=== PATIENT | female | born 1995 | race Hispanic/Latino ===

== ENCOUNTER 2016-03-20 02:51 | Emergency (ER) | payer OTHER ==
[~2016-03-20 02:51] MED LIST: FERR325T3 PO; MOTR200T44 PO; PERCOCET PO
[2016-03-20] MEDS ORDERED: METOCLOPRAMIDE INJ 10MG/2ML VIAL (J2765) As Ordered ONE (03:36)
[2016-03-20 03:38] LABS: MEAN CORPUSCULAR HGB CONC 34.3 g/dl (32.0-36.5); MEAN CORPUSCULAR VOLUME 93.3 fl (80.0-96.0); PLATELET COUNT, AUTOMATED 326 k/mm3 (150-450); RED CELL DISTRIBUTION WIDTH 13.1 % (11.5-14.5); WHITE BLOOD COUNT 18.7 K/mm3 (4.0-10.0)
[2016-03-20 03:48] LABS: CONTROL LINE HCG INT CTR LINE PRESENT
[2016-03-20 03:58] LABS: ALBUMIN 4.6 GM/DL (3.2-5.2); ALBUMIN/GLOBULIN RATIO 1.28 (1.00-1.93); ALKALINE PHOSPHATASE 107 U/L (45-117); ALT/SGPT 21 U/L (12-78); AMYLASE 57 U/L (25-115); ANION GAP 13 MEQ/L (8-16); AST/SGOT 13 U/L (15-37); BILIRUBIN,DIRECT 0.2 MG/DL (0.0-0.2); BILIRUBIN,TOTAL 0.8 MG/DL (0.2-1.0); BLOOD UREA NITROGEN 19 MG/DL (7-18); CALCIUM LEVEL 9.1 MG/DL (8.5-10.1); CARBON DIOXIDE LEVEL 20 MEQ/L (21-32); CHLORIDE LEVEL 110 MEQ/L (98-107); CREATININE FOR GFR 0.86 MG/DL (0.55-1.02); EOSINOPHILS 3 % (0-5); GLOMERULAR FILTRATION RATE > 60.0 (>60); GLUCOSE, FASTING 131 MG/DL (70-105); POTASSIUM SERUM 3.7 MEQ/L (3.5-5.1); SODIUM LEVEL 143 MEQ/L (136-145); TOTAL PROTEIN 8.2 GM/DL (6.4-8.2)
[2016-03-20] MEDS ORDERED: CIPROFLOXACIN/D5W 400 MG/200 ML BAG (J0744) As Ordered ONE (06:44)
--- NOTE | 2016-03-20 08:11 | EDDOCDS ---
Physician Documentation [facility] Name: Shireen Green Age: 21 yrs Sex: Female : 1995 Arrival Date: 03/20/2016 Time: 02:51 Bed 8 Private MD: Disposition: 03/20/16 06:41 Discharged to Home/Self Care. Impression: Urinary tract infection, site not specified, Other and unspecified noninfective gastroenteritis and colitis. - Condition is Stable. - Prescriptions for Reglan 10 mg Oral Tablet - take 1 tablet by ORAL route every 6 hours take 30 minutes before meals and at bedtime; 20 tablet. Cipro 500 mg Oral Tablet - take 1 tablet by ORAL route every 12 hours; 10 tablet. - Medication Reconciliation, Local Pharmacy Hours form. - Follow up: Private Physician; When: Call to arrange an appointment; Reason: Recheck today's complaints. - Problem is an ongoing problem. - Symptoms have improved. Historical: - Allergies: Codeine Sulfate; kiwi; Macrobid (Hives); - Home Meds: 1. Depo-Provera IM every 3 mo 2. Zyrtec 10 mg Oral tab once daily - PMHx: kidney infections frequent; - PSHx: ; - Social history: Smoking status: Patient states was never smoker of tobacco. No barriers to communication noted, The patient speaks fluent Maltese, Speaks appropriately for age. - Family history: Not pertinent. - : The pt / caregiver states he / she is not on anticoagulants. Home medication list is obtained from the patient. - Exposure Risk Screening:: None identified. 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 3 in. (160.02 cm); 03:32 BP 120 / 77 Supine; Pulse 81; ko2 03:32 BP 117 / 80 Sitting; Pulse 90; ko2 03:32 BP 128 / 80 Standing; Pulse 91; ko2 03:03 Body Mass Index 23.91 (61.23 kg, 160.02 cm) cz MDM: 03:19 Orthostatic VS ordered. cs11 03:19 NS 0.9% 1000 ml IV at bolus once ordered. cs11 03:20 CBC with Diff Ordered. EDMS 03:20 MED Profile Ordered. EDMS 03:20 Liver Profile Ordered. EDMS 03:20 Amylase Ordered. EDMS 03:20 Lipase Ordered. EDMS 03:20 HCG,Serum Qualitative Ordered. EDMS 03:20 Urinalysis Ordered. EDMS 03:20 Urine Culture Ordered. EDMS 03:34 Metoclopramide 10 mg IV at 40 mg/hr once over 15 mins ordered. cs11 03:41 DIFFERENTIAL NO CHARGE Ordered. EDMS 03:53 Financial registration complete. hs2 03:55 [facility] Payment Agreement was scanned into [employer] and attached to record. hs2 05:20 CBC with Diff Reviewed. cs11 05:20 MED Profile Reviewed. cs11 05:20 Liver Profile Reviewed. cs11 05:20 Amylase Reviewed. cs11 05:20 Lipase Reviewed. cs11 05:20 HCG,Serum Qualitative Reviewed. cs11 05:20 PLATELET ESTIMATE Reviewed. cs11 06:39 Urinalysis Reviewed. cs11 06:41 Ciprofloxacin 400 mg IVPB at 200 mL/hr once over 60 mins ordered. cs11 Administered Medications: 03:32 Drug: NS 0.9% 1000 ml [sodium chloride 0.9 % intravenous solution] Route: IV; Rate: ko2 bolus; Site: left antecubital; 03:41 Drug: Metoclopramide 10 mg [metoclopramide 5 mg/mL injection solution] Route: IV; Rate: ko2 40 mg/hr; Infused Over: 15 mins; Site: left antecubital; 06:54 Drug: Ciprofloxacin 400 mg [ciprofloxacin 400 mg/200 mL in 5 % dextrose intravenous ko2 piggyback] Route: IVPB; Rate: 200 mL/hr; Infused Over: 60 mins; Site: left antecubital; 08:08 Follow up: IV Status: Completed infusion [facility] Signatures: Dispatcher [employer] Oswald Avitia RN RN bcj Zecher, Calvin, RN RN cz Schiff, Craig, DO DO cs11 Dorothy Schafer RN RN ko2 Loren De Leon, Reg Reg hs2 The chart was reviewed and I authenticate all verbal orders and agree with the evaluation and treatment provided.Corrections: (The following items were deleted from the chart) 05:43 05:21 Misc. Nursing Order ordered. cs11 ko2 Attachments: 03:55 [facility] Agreement hs2 [facility]
--- NOTE | 2016-03-20 08:11 | EDDOCDS ---
Nurse's Notes [facility] Name: Sihreen Green Age: 21 yrs Sex: Female : 1995 Arrival Date: 03/20/2016 Time: 02:51 Bed 8 Private MD: Diagnosis: Urinary tract infection, site not specified;Other and unspecified noninfective gastroenteritis and colitis Presentation: 03/20 02:59 Presenting complaint: Patient states: pt states nausea vomiting diarrhea abdominal cz discomfort since 1999 last night. Adult Sepsis Screening: The patient does not have new or worsening altered mentation. Patient's respiratory rate is less than 22. Systolic blood pressure is greater than 100. Patient has a qSOFA score of 0- Negative Sepsis Screen. Suicide/Homicide risk assessment- the patient denies having any suicidal and/or homicidal ideations and does not present with any other emotional, behavioral or mental health complaints. Transition of care: patient was not received from another setting of care. 02:59 Acuity: NGUYEN Level 3 cz 02:59 Method Of Arrival: Walkin/Carried/Asstd cz 03:09 Status: The patient is a dependent. cz Triage Assessment: 03:03 General: Appears uncomfortable. Pain: Location: abdomen. HIV screening NA for this cz visit Offered previously. 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 Depo-Provera IM every 3 mo 2. Zyrtec 10 mg Oral tab once daily - PMHx: kidney infections frequent; - PSHx: ; - Social history: Smoking status: Patient states was never smoker of tobacco. No barriers to communication noted, The patient speaks fluent Portuguese, Speaks appropriately for age. - Family history: Not pertinent. - : The pt / caregiver states he / she is not on anticoagulants. Home medication list is obtained from the patient. - Exposure Risk Screening:: None identified. Screenin:34 Screening information is obtained from the patient. Fall risk: No risks identified. ko2 Assistance ADL's: requires no assistance with activities of daily living. Abuse/DV Screen: The patient / caregiver reports he/she is: not in a situation that causes fear, pain or injury. Nutritional screening: No deficits noted. Advance Directives: Currently, there is no health care proxy. home support is adequate. Assessment: 03:33 General: Appears in no apparent distress, Behavior is appropriate for age, cooperative. ko2 Pain: Location: abdomen. Neurological: Level of Consciousness is awake, alert. Respiratory: Airway is patent Respiratory effort is even, unlabored, Respiratory pattern is regular, symmetrical. GI: Abdomen is non- distended Bowel sounds present X 4 quads. Abd is soft X 4 quads. Derm: Skin is normal. 04:39 General: Appears in no apparent distress, comfortable, Behavior is appropriate for age, ko2 cooperative. Neurological: Level of Consciousness is awake, alert. Respiratory: Airway is patent Respiratory effort is even, unlabored. Derm: Skin is normal. 05:38 General: Appears in no apparent distress, comfortable, Behavior is appropriate for age, ko2 cooperative. Pain: Location: abdomen Pain currently is 2 out of 10 on a pain scale. Neurological: Level of Consciousness is awake, alert. Respiratory: Airway is compromised Respiratory effort is even, unlabored, Respiratory pattern is regular, symmetrical. Derm: Skin is normal. 06:16 General: Appears in no apparent distress, comfortable, Behavior is appropriate for age, ko2 cooperative. Pain: Location: abdomen Pain currently is 2 out of 10 on a pain scale. Neurological: Level of Consciousness is awake, alert. Respiratory: Airway is patent Respiratory effort is even, unlabored. Derm: Skin is normal. 08:08 General: Appears uncomfortable, Behavior is cooperative. Pain: Location: abdomen. Derm: bcj Skin is pink, warm & dry. Vital Signs: 03:03 BP 155 / 86; Pulse 102; Resp 18; Temp 97.8; Pulse Ox 99% on R/A; Weight 61.23 kg; cz Height 5 ft. 3 in. (160.02 cm); 03:32 BP 120 / 77 Supine; Pulse 81; ko2 03:32 BP 117 / 80 Sitting; Pulse 90; ko2 03:32 BP 128 / 80 Standing; Pulse 91; ko2 03:03 Body Mass Index 23.91 (61.23 kg, 160.02 cm) cz Vitals: 03:03 Log In Time: March 20, 2016 at 02:51. ED Course: 02:54 Patient visited by Bobby Freed, Reg. pm4 02:54 Patient moved to Waiting pm4 03:03 Triage Initiated 03:05 Dorothy Schafer RN is Primary Nurse. cz 03:05 Patient moved to 9 cz 03:07 Patient moved to 8 cz 03:17 Khris Romero DO is Attending Physician. cs11 03:18 Patient visited by Khris Romero DO. cs11 03:20 Inserted saline lock: 20 gauge in left antecubital area and blood collected. The ko2 patient tolerated the procedure well. 03:25 HCG,Serum Qualitative Sent. ko2 03:25 Lipase Sent. ko2 03:25 Amylase Sent. ko2 03:25 Liver Profile Sent. ko2 03:25 MED Profile Sent. ko2 03:25 CBC with Diff Sent. ko2 03:34 The patient / caregiver is instructed regarding the plan of care and ED course. ko2 03:41 Patient visited by Dorothy Schafer RN. ko2 03:41 DIFFERENTIAL NO CHARGE Sent. ko2 03:55 [facility] Payment Agreement was scanned into [employer] and attached to record. hs2 04:39 Patient visited by Dorothy Schafer RN. ko2 05:36 Patient visited by Rene Rubio PCA. kb5 05:44 Urinalysis Sent. ko2 05:44 Urine Culture Sent. ko2 06:16 Patient visited by Dorothy Schafer RN. ko2 08:08 No apparent distress. Resting quietly. Awaiting disposition. bcj 08:08 Discontinued lock intact, bleeding controlled. No procedures done that require bcj assistance. 08:09 Patient visited by Oswald Fuchs RN. bcj Administered Medications: 03:32 Drug: NS 0.9% 1000 ml [sodium chloride 0.9 % intravenous solution] Route: IV; Rate: ko2 bolus; Site: left antecubital; 03:41 Drug: Metoclopramide 10 mg [metoclopramide 5 mg/mL injection solution] Route: IV; Rate: ko2 40 mg/hr; Infused Over: 15 mins; Site: left antecubital; 06:54 Drug: Ciprofloxacin 400 mg [ciprofloxacin 400 mg/200 mL in 5 % dextrose intravenous ko2 piggyback] Route: IVPB; Rate: 200 mL/hr; Infused Over: 60 mins; Site: left antecubital; 08:08 Follow up: IV Status: Completed infusion bcj Order Results: Lab Order: CBC with Diff; SPEC'M 03/20/16 03:22 Test: WHITE BLOOD COUNT; Value: 18.7; Range: 4.0-10.0; Abnormal: Above high normal; Units: K/mm3; Status: F Test: RED BLOOD COUNT; Value: 4.85; Range: 4.00-5.40; Units: M/mm3; Status: F Test: HEMOGLOBIN; Value: 15.5; Range: 12.0-16.0; Units: g/dl; Status: F Test: HEMATOCRIT; Value: 45.3; Range: 36.0-47.0; Units: %; Status: F Test: MEAN CORPUSCULAR VOLUME; Value: 93.3; Range: 80.0-96.0; Units: fl; Status: F Test: MEAN CORPUSCULAR HEMOGLOBIN; Value: 32.0; Range: 27.0-33.0; Units: pg; Status: F Test: MEAN CORPUSCULAR HGB CONC; Value: 34.3; Range: 32.0-36.5; Units: g/dl; Status: F Test: RED CELL DISTRIBUTION WIDTH; Value: 13.1; Range: 11.5-14.5; Units: %; Status: F Test: PLATELET COUNT, AUTOMATED; Value: 326; Range: 150-450; Units: k/mm3; Status: F Test: NEUTROPHILS; Value: 89; Range: 35-75; Abnormal: Above high normal; Units: %; Status: F Test: LYMPHOCYTES; Value: 8; Range: 16-52; Abnormal: Below low normal; Units: %; Status: F Test: EOSINOPHILS; Value: 3; Range: 0-5; Units: %; Status: F Test: RBC MORPHOLOGY; Value: NORMAL; Status: F Lab Order: MED Profile; [facility] 03/20/16 03:22 Test: GLUCOSE, FASTING; Value: 131; Range: 70-105; Abnormal: Above high normal; Units: MG/DL; Status: F Test: BLOOD UREA NITROGEN; Value: 19; Range: 7-18; Abnormal: Above high normal; Units: MG/DL; Status: F Test: CREATININE FOR GFR; Value: 0.86; Range: 0.55-1.02; Units: MG/DL; Status: F Test: SODIUM LEVEL; Range: 136-145; Units: MEQ/L; Status: I Test: POTASSIUM SERUM; Range: 3.5-5.1; Units: MEQ/L; Status: I Test: CHLORIDE LEVEL; Range: 98-107; Units: MEQ/L; Status: I Test: CARBON DIOXIDE LEVEL; Range: 21-32; Units: MEQ/L; Status: I Test: ANION GAP; Range: 8-16; Units: MEQ/L; Status: I Test: CALCIUM LEVEL; Range: 8.5-10.1; Units: MG/DL; Status: I Test: GLOMERULAR FILTRATION RATE; Value: > 60.0; Range: >60; Status: F Test: SODIUM LEVEL; Value: 143; Range: 136-145; Units: MEQ/L; Status: F Test: POTASSIUM SERUM; Value: 3.7; Range: 3.5-5.1; Units: MEQ/L; Status: F Test: CHLORIDE LEVEL; Value: 110; Range: 98-107; Abnormal: Above high normal; Units: MEQ/L; Status: F Test: CARBON DIOXIDE LEVEL; Value: 20; Range: 21-32; Abnormal: Below low normal; Units: MEQ/L; Status: F Test: ANION GAP; Value: 13; Range: 8-16; Units: MEQ/L; Status: F Test: CALCIUM LEVEL; Value: 9.1; Range: 8.5-10.1; Units: MG/DL; Status: F Test Note: ; Units are mL/min/1.73 m2 Chronic Kidney Disease Staging per NKF: Stage I & II GFR >=60 Normal to Mildly Decreased Stage III GFR 30-59 Moderately Decreased Stage IV GFR 15-29 Severely Decreased Stage V GFR <15 Very Little GFR Left ESRD GFR <15 on BALANCE STAFF INSPECTOR Lab Order: Liver Profile; SPEC'M 03/20/16 03:22 Test: AST/SGOT; Value: 13; Range: 15-37; Abnormal: Below low normal; Units: U/L; Status: F Test: ALT/SGPT; Value: 21; Range: 12-78; Units: U/L; Status: F Test: ALKALINE PHOSPHATASE; Value: 107; Range: 45-117; Units: U/L; Status: F Test: BILIRUBIN,TOTAL; Value: 0.8; Range: 0.2-1.0; Units: MG/DL; Status: F Test: BILIRUBIN,DIRECT; Value: 0.2; Range: 0.0-0.2; Units: MG/DL; Status: F Test: TOTAL PROTEIN; Value: 8.2; Range: 6.4-8.2; Units: GM/DL; Status: F Test: ALBUMIN; Value: 4.6; Range: 3.2-5.2; Units: GM/DL; Status: F Test: ALBUMIN/GLOBULIN RATIO; Value: 1.28; Range: 1.00-1.93; Status: F Lab Order: Amylase; [facility] 03/20/16 03:22 Test: AMYLASE; Value: 57; Range: 25-115; Units: U/L; Status: F Lab Order: Lipase; [facility] 03/20/16 03:22 Test: LIPASE; Value: 103; Range: 73-393; Units: U/L; Status: F Lab Order: HCG,Serum Qualitative; [facility] 03/20/16 03:22 Test: HCG, SERUM QUALITATIVE; Value: NEGATIVE; Range: NEGATIVE; Status: F Lab Order: Urinalysis; [facility] 03/20/16 05:41 Test: APPEARANCE, URINE; Value: HAZY; Range: CLEAR; Status: F Test: COLOR, URINE; Value: YELLOW; Range: YELLOW; Status: F Test: PH,URINE; Value: 5.0; Range: 5.0-9.0; Units: UNITS; Status: F Test: SPECIFIC GRAVITY URINE AUTO; Value: 1.029; Range: 1.002-1.035; Status: F Test: PROTEIN, URINE AUTO; Value: 1+; Range: NEGATIVE; Abnormal: Above high normal; Units: mg/dL; Status: F Test: GLUCOSE, URINE (UA) AUTO; Value: NEGATIVE; Range: NEGATIVE; Units: mg/dL; Status: F Test: KETONE, URINE AUTO; Value: 1+; Range: NEGATIVE; Abnormal: Above high normal; Units: mg/dL; Status: F Test: UROBILINOGEN, URINE AUTO; Value: 0.2; Range: 0.0-2.0; Units: mg/dL; Status: F Test: BILIRUBIN, URINE AUTO; Value: NEGATIVE; Range: NEGATIVE; Status: F Test: NITRITE, URINE AUTO; Value: NEGATIVE; Range: NEGATIVE; Status: F Test: LEUKOCYTE ESTERASE, URINE AUTO; Value: 2+; Range: NEGATIVE; Abnormal: Above high normal; Status: F Test: BLOOD, URINE BLOOD; Value: NEGATIVE; Range: NEGATIVE; Status: F Test: WBC, URINE AUTO; Value: 27; Range: 0-3; Abnormal: Above high normal; Units: /HPF; Status: F Test: RBC, URINE AUTO; Value: 2; Range: 0-3; Units: /HPF; Status: F Test: BACTERIA, URINE AUTO; Value: 1+; Range: NEGATIVE; Abnormal: Above high normal; Status: F Test: SQUAMOUS EPITHELIAL CELL UR AU; Value: 2; Range: 0-6; Units: /HPF; Status: F Test: MUCUS, URINE; Value: LARGE; Range: NEGATIVE; Status: F Test: HYALINE CAST, URINE AUTO; Value: 0; Range: 0-1; Units: /LPF; Status: F Lab Order: PLATELET ESTIMATE; SPEC'M 03/20/16 03:22 Test: PLATELET ESTIMATE; Value: NORMAL; Range: NORMAL; Status: F Outcome: 06:41 Discharge ordered by Provider. cs11 08:08 Discharge Assessment: patient administered narcotics - no. The following High Risk [facility] Discharge criteria are identified: None. Discharged to home ambulatory. Condition: stable. Discharge instructions given to patient, Instructed on discharge instructions, follow up and referral plans. medication usage, diet, Prescriptions given X 2. No special radiology studies were completed. Property :Personal belongings accompany Pt. 08:10 Patient left the ED. [facility] Signatures: Oswald Fuchs RN RN bcj Zecher, Calvin RN Rene Andrade, CARDIOPULMONARY TECHNICIAN CARDIOPULMONARY TECHNICIAN kb5 Khris Romero, DO cs11 Dorothy Schafer RN RN ko2 Loren De Leon, Reg Reg hs2 Bobby Freed, Reg Reg pm4 MTDD
--- NOTE | 2016-03-22 09:11 | EDDOCDS ---
Physician Documentation [facility] Name: Shireen Green Age: 21 yrs Sex: Female : 1995 Arrival Date: 03/20/2016 Time: 02:51 Bed 8 Private MD: Disposition: 03/20/16 06:41 Discharged to Home/Self Care. Impression: Urinary tract infection, site not specified, Other and unspecified noninfective gastroenteritis and colitis. - Condition is Stable. - Prescriptions for Reglan 10 mg Oral Tablet - take 1 tablet by ORAL route every 6 hours take 30 minutes before meals and at bedtime; 20 tablet. Cipro 500 mg Oral Tablet - take 1 tablet by ORAL route every 12 hours; 10 tablet. - Medication Reconciliation, Local Pharmacy Hours form. - Follow up: Private Physician; When: Call to arrange an appointment; Reason: Recheck today's complaints. - Problem is an ongoing problem. - Symptoms have improved. Historical: - Allergies: Codeine Sulfate; kiwi; Macrobid (Hives); - Home Meds: 1. Depo-Provera IM every 3 mo 2. Zyrtec 10 mg Oral tab once daily - PMHx: kidney infections frequent; - PSHx: ; - Social history: Smoking status: Patient states was never smoker of tobacco. No barriers to communication noted, The patient speaks fluent Y[place], Speaks appropriately for age. - Family history: Not pertinent. - : The pt / caregiver states he / she is not on anticoagulants. Home medication list is obtained from the patient. - Exposure Risk Screening:: None identified. 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 3 in. (160.02 cm); 03:32 BP 120 / 77 Supine; Pulse 81; ko2 03:32 BP 117 / 80 Sitting; Pulse 90; ko2 03:32 BP 128 / 80 Standing; Pulse 91; ko2 03:03 Body Mass Index 23.91 (61.23 kg, 160.02 cm) cz MDM: 03:19 Orthostatic VS ordered. cs11 03:19 NS 0.9% 1000 ml IV at bolus once ordered. cs11 03:20 CBC with Diff Ordered. EDMS 03:20 MED Profile Ordered. EDMS 03:20 Liver Profile Ordered. EDMS 03:20 Amylase Ordered. EDMS 03:20 Lipase Ordered. EDMS 03:20 HCG,Serum Qualitative Ordered. EDMS 03:20 Urinalysis Ordered. EDMS 03:20 Urine Culture Ordered. EDMS 03:34 Metoclopramide 10 mg IV at 40 mg/hr once over 15 mins ordered. cs11 03:41 DIFFERENTIAL NO CHARGE Ordered. EDMS 03:53 Financial registration complete. hs2 03:55 [facility] Payment Agreement was scanned into [employer] and attached to record. hs2 05:20 CBC with Diff Reviewed. cs11 05:20 MED Profile Reviewed. cs11 05:20 Liver Profile Reviewed. cs11 05:20 Amylase Reviewed. cs11 05:20 Lipase Reviewed. cs11 05:20 HCG,Serum Qualitative Reviewed. cs11 05:20 PLATELET ESTIMATE Reviewed. cs11 06:39 Urinalysis Reviewed. cs11 06:41 Ciprofloxacin 400 mg IVPB at 200 mL/hr once over 60 mins ordered. cs11 14:17 T-Sheet-- Draft Copy was scanned into [employer] and attached to record. gb Administered Medications: 03:32 Drug: NS 0.9% 1000 ml [sodium chloride 0.9 % intravenous solution] Route: IV; Rate: ko2 bolus; Site: left antecubital; 03:41 Drug: Metoclopramide 10 mg [metoclopramide 5 mg/mL injection solution] Route: IV; Rate: ko2 40 mg/hr; Infused Over: 15 mins; Site: left antecubital; 06:54 Drug: Ciprofloxacin 400 mg [ciprofloxacin 400 mg/200 mL in 5 % dextrose intravenous ko2 piggyback] Route: IVPB; Rate: 200 mL/hr; Infused Over: 60 mins; Site: left antecubital; 08:08 Follow up: IV Status: Completed infusion [facility] Signatures: Dispatcher [employer] Oswald Avitia RN RN bcj Zecher, Calvin, RN RN cz Barnhardt, Gloria, Reg Reg gb Khris Romero, DO cs11 Dorothy Schafer RN RN ko2 Loren De Leon, Reg Reg hs2 The chart was reviewed and I authenticate all verbal orders and agree with the evaluation and treatment provided.Corrections: (The following items were deleted from the chart) 05:43 05:21 [facility]. Nursing Order ordered. cs11 ko2 Attachments: 03:55 [facility] Payment Agreement hs2 14:17 T-Sheet-- Draft Copy gb Chart Complete MTDD
--- NOTE | 2016-03-22 09:11 | EDDOCDS ---
Nurse's Notes [facility] Name: Shireen Green Age: 21 yrs Sex: Female : 1995 Arrival Date: 03/20/2016 Time: 02:51 Bed 8 Private MD: Diagnosis: Urinary tract infection, site not specified;Other and unspecified noninfective gastroenteritis and colitis Presentation: 03/20 02:59 Presenting complaint: Patient states: pt states nausea vomiting diarrhea abdominal cz discomfort since 1999 last night. Adult Sepsis Screening: The patient does not have new or worsening altered mentation. Patient's respiratory rate is less than 22. Systolic blood pressure is greater than 100. Patient has a qSOFA score of 0- Negative Sepsis Screen. Suicide/Homicide risk assessment- the patient denies having any suicidal and/or homicidal ideations and does not present with any other emotional, behavioral or mental health complaints. Transition of care: patient was not received from another setting of care. 02:59 Acuity: NGUYEN Level 3 cz 02:59 Method Of Arrival: Walkin/Carried/Asstd cz 03:09 Status: The patient is a dependent. cz Triage Assessment: 03:03 General: Appears uncomfortable. Pain: Location: abdomen. HIV screening NA for this cz visit Offered previously. 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 Depo-Provera IM every 3 mo 2. Zyrtec 10 mg Oral tab once daily - PMHx: kidney infections frequent; - PSHx: ; - Social history: Smoking status: Patient states was never smoker of tobacco. No barriers to communication noted, The patient speaks fluent Urdu, Speaks appropriately for age. - Family history: Not pertinent. - : The pt / caregiver states he / she is not on anticoagulants. Home medication list is obtained from the patient. - Exposure Risk Screening:: None identified. Screenin:34 Screening information is obtained from the patient. Fall risk: No risks identified. ko2 Assistance ADL's: requires no assistance with activities of daily living. Abuse/DV Screen: The patient / caregiver reports he/she is: not in a situation that causes fear, pain or injury. Nutritional screening: No deficits noted. Advance Directives: Currently, there is no health care proxy. home support is adequate. Assessment: 03:33 General: Appears in no apparent distress, Behavior is appropriate for age, cooperative. ko2 Pain: Location: abdomen. Neurological: Level of Consciousness is awake, alert. Respiratory: Airway is patent Respiratory effort is even, unlabored, Respiratory pattern is regular, symmetrical. GI: Abdomen is non- distended Bowel sounds present X 4 quads. Abd is soft X 4 quads. Derm: Skin is normal. 04:39 General: Appears in no apparent distress, comfortable, Behavior is appropriate for age, ko2 cooperative. Neurological: Level of Consciousness is awake, alert. Respiratory: Airway is patent Respiratory effort is even, unlabored. Derm: Skin is normal. 05:38 General: Appears in no apparent distress, comfortable, Behavior is appropriate for age, ko2 cooperative. Pain: Location: abdomen Pain currently is 2 out of 10 on a pain scale. Neurological: Level of Consciousness is awake, alert. Respiratory: Airway is compromised Respiratory effort is even, unlabored, Respiratory pattern is regular, symmetrical. Derm: Skin is normal. 06:16 General: Appears in no apparent distress, comfortable, Behavior is appropriate for age, ko2 cooperative. Pain: Location: abdomen Pain currently is 2 out of 10 on a pain scale. Neurological: Level of Consciousness is awake, alert. Respiratory: Airway is patent Respiratory effort is even, unlabored. Derm: Skin is normal. 08:08 General: Appears uncomfortable, Behavior is cooperative. Pain: Location: abdomen. Derm: bcj Skin is pink, warm & dry. Vital Signs: 03:03 BP 155 / 86; Pulse 102; Resp 18; Temp 97.8; Pulse Ox 99% on R/A; Weight 61.23 kg; cz Height 5 ft. 3 in. (160.02 cm); 03:32 BP 120 / 77 Supine; Pulse 81; ko2 03:32 BP 117 / 80 Sitting; Pulse 90; ko2 03:32 BP 128 / 80 Standing; Pulse 91; ko2 03:03 Body Mass Index 23.91 (61.23 kg, 160.02 cm) cz Vitals: 03:03 Log In Time: March 20, 2016 at 02:51. ED Course: 02:54 Patient visited by Bobby Freed, Reg. pm4 02:54 Patient moved to Waiting pm4 03:03 Triage Initiated 03:05 Dorothy Schafer RN is Primary Nurse. cz 03:05 Patient moved to 9 cz 03:07 Patient moved to 8 cz 03:17 Khris Romero DO is Attending Physician. cs11 03:18 Patient visited by Khris Roemro DO. cs11 03:20 Inserted saline lock: 20 gauge in left antecubital area and blood collected. The ko2 patient tolerated the procedure well. 03:25 HCG,Serum Qualitative Sent. ko2 03:25 Lipase Sent. ko2 03:25 Amylase Sent. ko2 03:25 Liver Profile Sent. ko2 03:25 MED Profile Sent. ko2 03:25 CBC with Diff Sent. ko2 03:34 The patient / caregiver is instructed regarding the plan of care and ED course. ko2 03:41 Patient visited by Dorothy Schafer RN. ko2 03:41 DIFFERENTIAL NO CHARGE Sent. ko2 03:55 [facility] Payment Agreement was scanned into [facility] and attached to record. hs2 04:39 Patient visited by Dorothy Schafer RN. ko2 05:36 Patient visited by Rene Rubio PCA. kb5 05:44 Urinalysis Sent. ko2 05:44 Urine Culture Sent. ko2 06:16 Patient visited by Dorothy Schafer RN. ko2 08:08 No apparent distress. Resting quietly. Awaiting disposition. bcj 08:08 Discontinued lock intact, bleeding controlled. No procedures done that require bcj assistance. 08:09 Patient visited by Oswald Fuchs RN. bcj 14:17 T-Sheet-- Draft Copy was scanned into [facility] and attached to record. gb Administered Medications: 03:32 Drug: NS 0.9% 1000 ml [sodium chloride 0.9 % intravenous solution] Route: IV; Rate: ko2 bolus; Site: left antecubital; 03:41 Drug: Metoclopramide 10 mg [metoclopramide 5 mg/mL injection solution] Route: IV; Rate: ko2 40 mg/hr; Infused Over: 15 mins; Site: left antecubital; 06:54 Drug: Ciprofloxacin 400 mg [ciprofloxacin 400 mg/200 mL in 5 % dextrose intravenous ko2 piggyback] Route: IVPB; Rate: 200 mL/hr; Infused Over: 60 mins; Site: left antecubital; 08:08 Follow up: IV Status: Completed infusion bcj Order Results: Lab Order: CBC with Diff; SPEC'M 03/20/16 03:22 Test: WHITE BLOOD COUNT; Value: 18.7; Range: 4.0-10.0; Abnormal: Above high normal; Units: K/mm3; Status: F Test: RED BLOOD COUNT; Value: 4.85; Range: 4.00-5.40; Units: M/mm3; Status: F Test: HEMOGLOBIN; Value: 15.5; Range: 12.0-16.0; Units: g/dl; Status: F Test: HEMATOCRIT; Value: 45.3; Range: 36.0-47.0; Units: %; Status: F Test: MEAN CORPUSCULAR VOLUME; Value: 93.3; Range: 80.0-96.0; Units: fl; Status: F Test: MEAN CORPUSCULAR HEMOGLOBIN; Value: 32.0; Range: 27.0-33.0; Units: pg; Status: F Test: MEAN CORPUSCULAR HGB CONC; Value: 34.3; Range: 32.0-36.5; Units: g/dl; Status: F Test: RED CELL DISTRIBUTION WIDTH; Value: 13.1; Range: 11.5-14.5; Units: %; Status: F Test: PLATELET COUNT, AUTOMATED; Value: 326; Range: 150-450; Units: k/mm3; Status: F Test: NEUTROPHILS; Value: 89; Range: 35-75; Abnormal: Above high normal; Units: %; Status: F Test: LYMPHOCYTES; Value: 8; Range: 16-52; Abnormal: Below low normal; Units: %; Status: F Test: EOSINOPHILS; Value: 3; Range: 0-5; Units: %; Status: F Test: RBC MORPHOLOGY; Value: NORMAL; Status: F Lab Order: MED Profile; SPEC'03/20/16 03:22 Test: GLUCOSE, FASTING; Value: 131; Range: 70-105; Abnormal: Above high normal; Units: MG/DL; Status: F Test: BLOOD UREA NITROGEN; Value: 19; Range: 7-18; Abnormal: Above high normal; Units: MG/DL; Status: F Test: CREATININE FOR GFR; Value: 0.86; Range: 0.55-1.02; Units: MG/DL; Status: F Test: SODIUM LEVEL; Range: 136-145; Units: MEQ/L; Status: I Test: POTASSIUM SERUM; Range: 3.5-5.1; Units: MEQ/L; Status: I Test: CHLORIDE LEVEL; Range: 98-107; Units: MEQ/L; Status: I Test: CARBON DIOXIDE LEVEL; Range: 21-32; Units: MEQ/L; Status: I Test: ANION GAP; Range: 8-16; Units: MEQ/L; Status: I Test: CALCIUM LEVEL; Range: 8.5-10.1; Units: MG/DL; Status: I Test: GLOMERULAR FILTRATION RATE; Value: > 60.0; Range: >60; Status: F Test: SODIUM LEVEL; Value: 143; Range: 136-145; Units: MEQ/L; Status: F Test: POTASSIUM SERUM; Value: 3.7; Range: 3.5-5.1; Units: MEQ/L; Status: F Test: CHLORIDE LEVEL; Value: 110; Range: 98-107; Abnormal: Above high normal; Units: MEQ/L; Status: F Test: CARBON DIOXIDE LEVEL; Value: 20; Range: 21-32; Abnormal: Below low normal; Units: MEQ/L; Status: F Test: ANION GAP; Value: 13; Range: 8-16; Units: MEQ/L; Status: F Test: CALCIUM LEVEL; Value: 9.1; Range: 8.5-10.1; Units: MG/DL; Status: F Test Note: ; Units are mL/min/1.73 m2 Chronic Kidney Disease Staging per NKF: Stage I & II GFR >=60 Normal to Mildly Decreased Stage III GFR 30-59 Moderately Decreased Stage IV GFR 15-29 Severely Decreased Stage V GFR <15 Very Little GFR Left ESRD GFR <15 on HAT CONDITIONER Lab Order: Liver Profile; SPEC'M 03/20/16 03:22 Test: AST/SGOT; Value: 13; Range: 15-37; Abnormal: Below low normal; Units: U/L; Status: F Test: ALT/SGPT; Value: 21; Range: 12-78; Units: U/L; Status: F Test: ALKALINE PHOSPHATASE; Value: 107; Range: 45-117; Units: U/L; Status: F Test: BILIRUBIN,TOTAL; Value: 0.8; Range: 0.2-1.0; Units: MG/DL; Status: F Test: BILIRUBIN,DIRECT; Value: 0.2; Range: 0.0-0.2; Units: MG/DL; Status: F Test: TOTAL PROTEIN; Value: 8.2; Range: 6.4-8.2; Units: GM/DL; Status: F Test: ALBUMIN; Value: 4.6; Range: 3.2-5.2; Units: GM/DL; Status: F Test: ALBUMIN/GLOBULIN RATIO; Value: 1.28; Range: 1.00-1.93; Status: F Lab Order: Amylase; [facility] 03/20/16 03:22 Test: AMYLASE; Value: 57; Range: 25-115; Units: U/L; Status: F Lab Order: Lipase; [facility] 03/20/16 03:22 Test: LIPASE; Value: 103; Range: 73-393; Units: U/L; Status: F Lab Order: HCG,Serum Qualitative; [facility] 03/20/16 03:22 Test: HCG, SERUM QUALITATIVE; Value: NEGATIVE; Range: NEGATIVE; Status: F Lab Order: Urinalysis; [facility] 03/20/16 05:41 Test: APPEARANCE, URINE; Value: HAZY; Range: CLEAR; Status: F Test: COLOR, URINE; Value: YELLOW; Range: YELLOW; Status: F Test: PH,URINE; Value: 5.0; Range: 5.0-9.0; Units: UNITS; Status: F Test: SPECIFIC GRAVITY URINE AUTO; Value: 1.029; Range: 1.002-1.035; Status: F Test: PROTEIN, URINE AUTO; Value: 1+; Range: NEGATIVE; Abnormal: Above high normal; Units: mg/dL; Status: F Test: GLUCOSE, URINE (UA) AUTO; Value: NEGATIVE; Range: NEGATIVE; Units: mg/dL; Status: F Test: KETONE, URINE AUTO; Value: 1+; Range: NEGATIVE; Abnormal: Above high normal; Units: mg/dL; Status: F Test: UROBILINOGEN, URINE AUTO; Value: 0.2; Range: 0.0-2.0; Units: mg/dL; Status: F Test: BILIRUBIN, URINE AUTO; Value: NEGATIVE; Range: NEGATIVE; Status: F Test: NITRITE, URINE AUTO; Value: NEGATIVE; Range: NEGATIVE; Status: F Test: LEUKOCYTE ESTERASE, URINE AUTO; Value: 2+; Range: NEGATIVE; Abnormal: Above high normal; Status: F Test: BLOOD, URINE BLOOD; Value: NEGATIVE; Range: NEGATIVE; Status: F Test: WBC, URINE AUTO; Value: 27; Range: 0-3; Abnormal: Above high normal; Units: /HPF; Status: F Test: RBC, URINE AUTO; Value: 2; Range: 0-3; Units: /HPF; Status: F Test: BACTERIA, URINE AUTO; Value: 1+; Range: NEGATIVE; Abnormal: Above high normal; Status: F Test: SQUAMOUS EPITHELIAL CELL UR AU; Value: 2; Range: 0-6; Units: /HPF; Status: F Test: MUCUS, URINE; Value: LARGE; Range: NEGATIVE; Status: F Test: HYALINE CAST, URINE AUTO; Value: 0; Range: 0-1; Units: /LPF; Status: F Lab Order: Urine Culture; SPEC'M 03/20/16 05:41 Test: URINE CULTURE; Value: URINE CULTURE RESULT NO GROWTH; Status: F Lab Order: PLATELET ESTIMATE; SPEC'M 03/20/16 03:22 Test: PLATELET ESTIMATE; Value: NORMAL; Range: NORMAL; Status: F Outcome: 06:41 Discharge ordered by Provider. cs11 08:08 Discharge Assessment: patient administered narcotics - no. The following High Risk [facility] Discharge criteria are identified: None. Discharged to home ambulatory. Condition: stable. Discharge instructions given to patient, Instructed on discharge instructions, follow up and referral plans. medication usage, diet, Prescriptions given X 2. No special radiology studies were completed. Property :Personal belongings accompany Pt. 08:10 Patient left the ED. [facility] Signatures: Oswald Fuchs RN RN bcChidi Whatley RN RN cz Barnhardt, Gloria, Reg Reg gb Rene Rubio, [employer] kb5 Khris Romero DO DO cs11 Dorothy Schafer RN RN ko2 Loren De Leon, Reg Reg hs2 Bobby Freed, Reg Reg pm4 Chart Complete MTDD
--- NOTE | 2016-03-22 09:11 | EDDOCDS ---
Physician Documentation [facility] Name: Shireen Green Age: 21 yrs Sex: Female : 1995 Arrival Date: 03/20/2016 Time: 02:51 Bed 8 Private MD: Disposition: 03/20/16 06:41 Discharged to Home/Self Care. Impression: Urinary tract infection, site not specified, Other and unspecified noninfective gastroenteritis and colitis. - Condition is Stable. - Prescriptions for Reglan 10 mg Oral Tablet - take 1 tablet by ORAL route every 6 hours take 30 minutes before meals and at bedtime; 20 tablet. Cipro 500 mg Oral Tablet - take 1 tablet by ORAL route every 12 hours; 10 tablet. - Medication Reconciliation, Local Pharmacy Hours form. - Follow up: Private Physician; When: Call to arrange an appointment; Reason: Recheck today's complaints. - Problem is an ongoing problem. - Symptoms have improved. Historical: - Allergies: Codeine Sulfate; kiwi; Macrobid (Hives); - Home Meds: 1. Depo-Provera IM every 3 mo 2. Zyrtec 10 mg Oral tab once daily - PMHx: kidney infections frequent; - PSHx: ; - Social history: Smoking status: Patient states was never smoker of tobacco. No barriers to communication noted, The patient speaks fluent Khmer, Speaks appropriately for age. - Family history: Not pertinent. - : The pt / caregiver states he / she is not on anticoagulants. Home medication list is obtained from the patient. - Exposure Risk Screening:: None identified. 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 3 in. (160.02 cm); 03:32 BP 120 / 77 Supine; Pulse 81; ko2 03:32 BP 117 / 80 Sitting; Pulse 90; ko2 03:32 BP 128 / 80 Standing; Pulse 91; ko2 03:03 Body Mass Index 23.91 (61.23 kg, 160.02 cm) cz MDM: 03:19 Orthostatic VS ordered. cs11 03:19 NS 0.9% 1000 ml IV at bolus once ordered. cs11 03:20 CBC with Diff Ordered. EDMS 03:20 MED Profile Ordered. EDMS 03:20 Liver Profile Ordered. EDMS 03:20 Amylase Ordered. EDMS 03:20 Lipase Ordered. EDMS 03:20 HCG,Serum Qualitative Ordered. EDMS 03:20 Urinalysis Ordered. EDMS 03:20 Urine Culture Ordered. EDMS 03:34 Metoclopramide 10 mg IV at 40 mg/hr once over 15 mins ordered. cs11 03:41 DIFFERENTIAL NO CHARGE Ordered. EDMS 03:53 Financial registration complete. hs2 03:55 PENDING SALE TO [facility] Payment Agreement was scanned into [employer] and attached to record. hs2 05:20 CBC with Diff Reviewed. cs11 05:20 MED Profile Reviewed. cs11 05:20 Liver Profile Reviewed. cs11 05:20 Amylase Reviewed. cs11 05:20 Lipase Reviewed. cs11 05:20 HCG,Serum Qualitative Reviewed. cs11 05:20 PLATELET ESTIMATE Reviewed. cs11 06:39 Urinalysis Reviewed. cs11 06:41 Ciprofloxacin 400 mg IVPB at 200 mL/hr once over 60 mins ordered. cs11 14:17 T-Sheet-- Draft Copy was scanned into [employer] and attached to record. gb Administered Medications: 03:32 Drug: NS 0.9% 1000 ml [sodium chloride 0.9 % intravenous solution] Route: IV; Rate: ko2 bolus; Site: left antecubital; 03:41 Drug: Metoclopramide 10 mg [metoclopramide 5 mg/mL injection solution] Route: IV; Rate: ko2 40 mg/hr; Infused Over: 15 mins; Site: left antecubital; 06:54 Drug: Ciprofloxacin 400 mg [ciprofloxacin 400 mg/200 mL in 5 % dextrose intravenous ko2 piggyback] Route: IVPB; Rate: 200 mL/hr; Infused Over: 60 mins; Site: left antecubital; 08:08 Follow up: IV Status: Completed infusion [facility] Signatures: Dispatcher [employer] Oswald Avitia RN RN bcj Zecher, Calvin, RN RN cz Barnhardt, Gloria, Reg Reg gb Khris Romero, DO cs11 Dorothy Schafer RN RN ko2 Loren De Leon, Reg Reg hs2 The chart was reviewed and I authenticate all verbal orders and agree with the evaluation and treatment provided.Corrections: (The following items were deleted from the chart) 05:43 05:21 [facility]. Nursing Order ordered. cs11 ko2 Attachments: 03:55 [facility] Payment Agreement hs2 14:17 T-Sheet-- Draft Copy gb Chart Complete MTDD
== END 2016-03-20 08:10 | disposition home or self-care (01) ==
LOC: M ED 02:51
DX: N39.0 Urinary tract infection, site not specified (principal); K52.9 Noninfective gastroenteritis and colitis, unspecified; Z79.899 Other long term (current) drug therapy; Z79.3 Long term (current) use of hormonal contraceptives; Z88.8 Allergy status to other drugs, medicaments and biological substances; Z91.018 Allergy to other foods; Z88.2 Allergy status to sulfonamides
CPT/HCPCS: 36415; 80048; 80076; 81001; 82150; 83690; 84703; 85025; 87086; 96365; 96375; 99284; J0744; J2765

== ENCOUNTER 2016-05-30 20:16 | Observation (INO) | payer OTHER ==
[~2016-05-30] VITALS: Ht 160 cm; Wt 60.3 kg
[2016-05-30] MEDS ORDERED: ZYRT10CA PO (20:28)
[2016-05-30] MEDS ORDERED: MORPHINE 4 MG/ML 1ML SYRINGE IV ONE ×2 (21:30→23:45)
[2016-05-30] MEDS ORDERED: ONDANSETRON 4MG/2ML VIAL (J2405) IV ONE (21:30)
[2016-05-30 21:39] LABS: BASO % 0.5 % (0.0-1.0); EOS # 1.4 K/mm3 (0.0-0.50); EOS % 13.2 % (0.0-3.0); LARGE UNSTAINED CELL # 0.1 K/mm3 (0.0-0.4); LARGE UNSTAINED CELL % 0.8 % (0.0-4.0); LYMPH # 2.8 K/mm3 (1.5-6.5); LYMPH % 25.7 % (24.0-44.0); MEAN CORPUSCULAR HEMOGLOBIN 32.3 pg (27.0-33.0); MEAN CORPUSCULAR VOLUME 97.9 fl (80.0-96.0); MONO # 0.3 K/mm3 (0.0-0.8); MONO % 3.2 % (0.0-5.0); NEUTROPHILS # 6.1 K/mm3 (1.8-7.7); NEUTROPHILS % 56.6 % (36.0-66.0); PLATELET COUNT, AUTOMATED 307 k/mm3 (150-450); RED CELL DISTRIBUTION WIDTH 12.7 % (11.5-14.5); WHITE BLOOD COUNT 10.7 K/mm3 (4.0-10.0)
[2016-05-30 21:55] LABS: CONTROL LINE HCG INT CTR LINE PRESENT
[2016-05-30 22:09] LABS: ALBUMIN 3.8 GM/DL (3.2-5.2); ALBUMIN/GLOBULIN RATIO 1.15 (1.00-1.93); ALKALINE PHOSPHATASE 104 U/L (45-117); ALT/SGPT 17 U/L (12-78); AMYLASE 53 U/L (25-115); ANION GAP 8 MEQ/L (8-16); AST/SGOT 10 U/L (15-37); BILIRUBIN,DIRECT < 0.1 MG/DL (0.0-0.2); BILIRUBIN,TOTAL 0.3 MG/DL (0.2-1.0); BLOOD UREA NITROGEN 10 MG/DL (7-18); CALCIUM LEVEL 8.3 MG/DL (8.5-10.1); CARBON DIOXIDE LEVEL 25 MEQ/L (21-32); CHLORIDE LEVEL 110 MEQ/L (98-107); CREATININE FOR GFR 0.86 MG/DL (0.55-1.02); GLOMERULAR FILTRATION RATE > 60.0 (>60); GLUCOSE, FASTING 86 MG/DL (70-105); POTASSIUM SERUM 3.9 MEQ/L (3.5-5.1); SODIUM LEVEL 143 MEQ/L (136-145); TOTAL PROTEIN 7.1 GM/DL (6.4-8.2)
--- NOTE | 2016-05-30 22:10 | REPUSA ---
Clinical history: Pain. Findings: Real-time transabdominal and transvaginal ultrasound images of the pelvis were obtained. An anteverted uterus is noted, measuring 6.1 x 3.7 x 4.4 cm. The uterus demonstrates normal echotexture and echogenicity. The endometrial stripe measures 2 mm and is within normal limits. The right ovary measures 3.3 x 1.6 x 2.3 cm. The left ovary measures 3.4 x 1.9 x 2.0 cm. No adnexal masses are seen. Color Doppler flow is seen within both ovaries. There is no evidence of free fluid. Impression: Unremarkable ultrasound examination of the pelvis.
[2016-05-30] MEDS ORDERED: ISOVUE-370 76% 100ML VIAL (Q9967) As Ordered ONE (23:05)
--- NOTE | 2016-05-30 23:40 | REPUSA ---
CT of the abdomen and pelvis with contrast Clinical statement: Pain. Technique: Multiple axial CT images were obtained from the base of the lungs through the floor of the pelvis utilizing 5 mm axial slices after administration of oral and nonionic intravenous contrast. C oronal and sagittal reconstructions were also obtained. Comparison: 02/27/2015. Findings: Chest: The visualized lung bases are clear. Abdomen: The liver, spleen, pancreas, kidneys, gallbladder, and adrenal glands are unremarkable. The aorta is within normal limits. There is no evidence of abdominal lymphadenopathy or ascites. Pelvis: The bowel is unremarkable, with no obstructive or inflammatory changes. The appendix is patel l. The urinary bladder is within normal limits. The other pelvic structures appear grossly intact. Th ere is no evidence of pelvic lymphadenopathy or ascites. Bones: There are no suspicious osseous abnormalities seen. Impression: Unremarkable CT examination of the abdomen and pelvis.
[2016-05-31] MEDS ORDERED: ALBU17IN INH (01:21)
[2016-05-31 01:30] VITALS: BP 139/58
[2016-05-31] MEDS: LR 1,000 ML IV SCH ×2 (02:26→09:12)
[2016-05-31] MEDS: KETOROLAC 30 MG/ML VIAL (J1885) IV SCH ×2 (02:27→09:13)
[2016-05-31] MEDS ORDERED: MORPHINE 4 MG/ML 1ML SYRINGE IV PRN (02:30)
[2016-05-31] MEDS ORDERED: ONDANSETRON 4MG/2ML VIAL (J2405) IV PRN (02:30)
[2016-05-31 06:00] VITALS: BP 114/54
[2016-05-31 06:25] LABS: MEAN CORPUSCULAR HEMOGLOBIN 32.8 pg (27.0-33.0); MEAN CORPUSCULAR HGB CONC 34.6 g/dl (32.0-36.5); MEAN CORPUSCULAR VOLUME 94.8 fl (80.0-96.0); RED CELL DISTRIBUTION WIDTH 12.5 % (11.5-14.5); WHITE BLOOD COUNT 7.5 K/mm3 (4.0-10.0)
[2016-05-31 08:00] VITALS: BP 100/62
--- NOTE | 2016-07-06 21:51 | DSES ---
DATE OF ADMISSION: 05/30/2016 DATE OF DISCHARGE: 05/31/2016 PRINCIPAL DIAGNOSIS: Abdominal pain right lower quadrant. ASSOCIATED DIAGNOSIS: History of multiple urinary tract infections, history of , history of environmental allergies. ALLERGIES: CODEINE. LISA SALINAS. MEDICATIONS: - Depo-Provera - Zyrtec HISTORY OF PRESENT ILLNESS: The patient is a 21-year-old white female has had multiple ER visits in the past for chronic urinary tract infections. However, today's study did was not convincing for urinary tract infection. She had severe pain that has been present for the last 3 hours prior to admission. She came into the emergency room because of the severity of the pain that was acute in onset and persistent since that time. She had an elevated white count of 10.7 and was seen by the emergency room, underwent a CT scan as well as a pelvic ultrasound which showed no significant abnormalities. On her evaluation and history she had evidence of pain that was persistent and unrelenting, only with pain medication. Seemed to be present and persistent for the last 3 hours prior to admission. She had some chills, nausea, loss of appetite. Notices this was worse when she was walking; also when she was moving at all. She was not able to get out of the bed without having significant pain and discomfort. Although when she was lying still her pain mostly resolved almost completely. HOSPITAL COURSE SUMMARY: The patient was admitted with the diagnosis of abdominal pain, right lower quadrant and followup white count in the morning revealed a normal white count and the majority of her pain had resolved at the time she was seen and a few hours after being admitted throughout the night. Etiology for the abdominal pain was undetermined. However, she seemed to be doing well, was started on a clear liquid diet, advanced to regular diet rapidly and was discharged to home on 05/31/2016. DISCHARGE MEDICATIONS: Include the following: albuterol, Zyrtec and ibuprofen. She was to follow up with her primary care provider this week to discuss further evaluation if necessary. Otherwise, to followup with myself on as needed basis.
== END 2016-05-31 10:20 | disposition home or self-care (01) ==
LOC: M ED 21:58 → M PED 21:59 → M ED INP 22:00 → UNDOADMOB 05-31 00:15 → M ED INP 05-31 00:15 → M PED 05-31 01:25 → M ED INP 05-31 01:25 → UNDODISOB 05-31 10:20
PROVIDERS: ADMIT Surgery; ATTEND Surgery
DX: R10.31 Right lower quadrant pain (principal); Z87.440 Personal history of urinary (tract) infections
CPT/HCPCS: 36415; 74177; 76856; 80048; 80076; 82150; 83690; 84703; 85025; 85027; 96374; 96375; 96376; 99284; J1885; J2405; Q9967

== ENCOUNTER 2016-11-19 13:55 | Emergency (ER) | payer OTHER ==
[~2016-11-19] VITALS: Ht 160 cm; Wt 61.4 kg
[~2016-11-19 13:55] MED LIST changes: +ALBU17IN INH; +ZYRT10CA PO
[2016-11-19] MEDS ORDERED: ONDANSETRON 4 MG ORAL DISINTEGRATING TAB (S0181) PO ONE (15:15)
[2016-11-19] MEDS ORDERED: KETOROLAC 60 MG/2 ML VIAL (J1885) IM ONE (15:15)
[2016-11-19] MEDS ORDERED: ZOFR4TAB3 PO (15:19)
[2016-11-19] MEDS ORDERED: IBUP80TA PO (15:19)
[2016-11-19] MEDS ORDERED: ROBA500T PO (15:19)
[2016-11-19 15:52] VITALS: BP 123/69
== END 2016-11-19 15:52 | disposition home or self-care (01) ==
LOC: M ED 13:55
DX: S39.012A Strain of muscle, fascia and tendon of lower back, initial encounter (principal); R11.2 Nausea with vomiting, unspecified; R19.7 Diarrhea, unspecified
CPT/HCPCS: 96372; 99282; J1885

== ENCOUNTER 2017-03-27 08:50 | Emergency (ER) | payer OTHER | END 2017-03-27 09:39 | disposition home or self-care (01) | LOC: M ED 08:50 | DX: H10.9 Unspecified conjunctivitis (principal); J45.909 Unspecified asthma, uncomplicated; Z88.5 Allergy status to narcotic agent; Z88.8 Allergy status to other drugs, medicaments and biological substances | CPT/HCPCS: 99283 ==

== ENCOUNTER → 2017-09-06 | Outpatient (REF) | payer SELFPAY, OTHER ==
[2017-09-06 14:30] LABS: HEPATITIS B SURFACE ANTIBODY NEGATIVE (POSITIVE)
[2017-09-06 14:41] LABS: HEPATITIS B SURFACE ANTIGEN NEGATIVE (NEGATIVE)
[2017-09-06 15:09] LABS: HEPATITIS C VIRUS ABY INDEX 0.1 INDEX (<0.8)
[2017-09-06 15:10] LABS: HIV 1&2 SCREEN CENTAUR NEGATIVE (NEGATIVE)
[2017-09-08 00:09] LABS: HSV IgM TYPES 1&2 <0.91 Ratio (0.00-0.90)
== END ==
LOC: M SFHCPLAZ 09:35
DX: Z02.1 Encounter for pre-employment examination (principal)

== ENCOUNTER → 2017-11-30 | Outpatient (REF) | payer OTHER ==
[2017-11-30 23:40] LABS: CHLAMYDIA DNA AMPLIFICATION NEGATIVE (NEGATIVE); GC DNA AMPLIFICATION NEGATIVE (NEGATIVE)
== END ==
LOC: M SFHCLERA 11:43
DX: R10.2 Pelvic and perineal pain (principal)

== ENCOUNTER 2018-03-10 13:17 | Emergency (ER) | payer OTHER, SELFPAY ==
[~2018-03-10] VITALS: Ht 160 cm; Wt 61.4 kg
[~2018-03-10 13:17] MED LIST changes: +IBUP80TA PO; +NEOM1SUS15 OP; +ROBA500T PO; +ZOFR4TAB14 PO; +ZOFR4TAB16 PO; +[UNRECOGNIZED DRUG - CODE] BLADIN
[2018-03-10] MEDS ORDERED: VENTAER INH (13:24)
[2018-03-10] MEDS ORDERED: NS 1,000 ML IV ONE (13:45)
[2018-03-10] MEDS ORDERED: ONDANSETRON 4MG/2ML VIAL (J2405) IV ONE (14:00)
[2018-03-10 14:19] LABS: BASO % 0.2 % (0.0-1.0); EOS # 0.3 10^3/uL (0.0-0.50); EOS % 4.8 % (0.0-3.0); HEMATOCRIT 42.4 % (36.0-47.0); HEMOGLOBIN 14.7 g/dl (12.0-15.5); LYMPH # 1.7 10^3/uL (1.5-6.5); LYMPH % 25.5 % (24.0-44.0); MEAN CORPUSCULAR HEMOGLOBIN 32.7 pg (27.0-33.0); MEAN CORPUSCULAR HGB CONC 34.7 g/dl (32.0-36.5); MEAN CORPUSCULAR VOLUME 94.4 fl (80.0-96.0); MONO # 0.4 10^3/uL (0.0-0.8); MONO % 6.2 % (0.0-5.0); NEUTROPHILS # 4.2 10^3/uL (1.8-7.7); NEUTROPHILS % 63.1 % (36.0-66.0); PLATELET COUNT, AUTOMATED 245 10^3/uL (150-450); RED BLOOD COUNT 4.49 10^6/uL (4.00-5.40); WHITE BLOOD COUNT 6.6 10^3/uL (4.0-10.0)
[2018-03-10 14:47] LABS: ALBUMIN 3.8 GM/DL (3.2-5.2); ALT/SGPT 17 U/L (12-78); BILIRUBIN,DIRECT 0.2 MG/DL (0.0-0.2); BILIRUBIN,TOTAL 0.7 MG/DL (0.2-1.0); BLOOD UREA NITROGEN 14 MG/DL (7-18); CALCIUM LEVEL 8.7 MG/DL (8.5-10.1); CARBON DIOXIDE LEVEL 27 MEQ/L (21-32); CHLORIDE LEVEL 106 MEQ/L (98-107); CREATININE FOR GFR 0.71 MG/DL (0.55-1.30); GLOMERULAR FILTRATION RATE > 60.0 (>60); GLUCOSE, FASTING 101 MG/DL (70-100); LIPASE 135 U/L (73-393); POTASSIUM SERUM 3.9 MEQ/L (3.5-5.1); SODIUM LEVEL 139 MEQ/L (136-145); TOTAL PROTEIN 7.4 GM/DL (6.4-8.2)
[2018-03-10 14:49] LABS: HCG, SERUM QUALITATIVE NEGATIVE (NEGATIVE)
[2018-03-10] MEDS ORDERED: KETOROLAC 30 MG/ML VIAL (J1885) IV ONE (15:00)
--- NOTE | 2018-03-10 15:23 | REP ---
Abdomen series: Two views. History: Constipation. Epigastric pain. Findings: Umbilical jewelry is noted. Supine and upright views of the abdomen show a normal bowel gas pattern. No mass, organomegaly or pathologic calcification is seen. There is a mild levoconvex curvature in the lumbar spine. Flank stripes and psoas margins are intact. A vaginal tampon appears to be present in the pelvis. No air fluid levels or free subdiaphragmatic air is seen. Impression: Mild levoconvex curvature in the lumbar spine. Normal bowel gas pattern. Unremarkable abdomen views. Electronically Signed by Antonio Chairez MD 03/10/2018 03:14 P
[2018-03-10] MEDS ORDERED: COLA100C5 PO (15:32)
[2018-03-10] MEDS ORDERED: ZOFR4TAB14 PO (15:32)
[2018-03-10] MEDS ORDERED: MIRA3350 PO (15:32)
[2018-03-10 15:51] VITALS: BP 108/60
== END 2018-03-10 15:50 | disposition home or self-care (01) ==
LOC: M ED 13:17
DX: K59.00 Constipation, unspecified (principal); J45.909 Unspecified asthma, uncomplicated; Z88.5 Allergy status to narcotic agent; Z88.8 Allergy status to other drugs, medicaments and biological substances; Z91.040 Latex allergy status
CPT/HCPCS: 74019; 80048; 80076; 81001; 83690; 84703; 85025; 96361; 96374; 96375; 99284; J1885; J2405

== ENCOUNTER 2018-03-17 22:23 | Emergency (ER) | payer SELFPAY ==
[~2018-03-17] VITALS: Ht 160 cm; Wt 61.4 kg
[~2018-03-17 22:23] MED LIST changes: +COLA100C5 PO; +MIRA3350 PO; +VENTAER INH
[2018-03-17] MEDS ORDERED: ADACEL/BOOSTRIX VACCINE (DIPHTH/PERTUSS/ACELL/TETANUS)0.5ML SYR (90715) IM ONE (23:00)
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
[2018-03-17] MEDS ORDERED: traMADol 50 MG TAB PO ONE (23:30)
[2018-03-17] MEDS ORDERED: IBUPROFEN 600 MG TAB PO ONE (23:30)
[2018-03-17] MEDS ORDERED: ONDANSETRON 4 MG ORAL DISINTEGRATING TAB (Q0162 PER 1MG) PO ONE (23:30)
[2018-03-17 23:50] VITALS: BP 126/57
== END 2018-03-17 23:53 | disposition home or self-care (01) ==
LOC: M ED 22:23
DX: S01.91XA Laceration without foreign body of unspecified part of head, initial encounter (principal); R51 Headache; W01.0XXA Fall on same level from slipping, tripping and stumbling without subsequent striking against object, initial encounter; Y92.099 Unspecified place in other non-institutional residence as the place of occurrence of the external cause; Y93.9 Activity, unspecified; Y99.9 Unspecified external cause status; J45.909 Unspecified asthma, uncomplicated; Z88.5 Allergy status to narcotic agent; Z88.8 Allergy status to other drugs, medicaments and biological substances; Z91.040 Latex allergy status
CPT/HCPCS: 12001; 70450; 90471; 90715; 99283; Q0162

== ENCOUNTER 2018-06-27 16:42 | Emergency (ER) | payer MEDICAID, SELFPAY ==
[~2018-06-27] VITALS: Ht 160 cm; Wt 61.4 kg
[2018-06-27 16:42] VITALS: BP 130/82
[~2018-06-27 16:42] MED LIST changes: +NEOM1SUS14 OP; -NEOM1SUS15 OP
[2018-06-27] MEDS ORDERED: ACET160S3 PO (16:48)
== END 2018-06-27 17:20 | disposition left against medical advice (07) ==
LOC: M ED 16:42
DX: Z53.21 Procedure and treatment not carried out due to patient leaving prior to being seen by health care provider (principal)

== ENCOUNTER → 2018-07-19 | Outpatient (REF) | payer MEDICAID ==
[~2018-07-19] MED LIST changes: +ACET160S3 PO
[2018-07-19 13:49] LABS: BASO % 0.6 % (0.0-1.0); EOS # 0.6 10^3/uL (0.0-0.50); EOS % 8.8 % (0.0-3.0); HEMATOCRIT 41.9 % (36.0-47.0); HEMOGLOBIN 14.1 g/dl (12.0-15.5); LYMPH # 1.8 10^3/uL (1.5-6.5); LYMPH % 28.3 % (24.0-44.0); MEAN CORPUSCULAR HEMOGLOBIN 33.3 pg (27.0-33.0); MEAN CORPUSCULAR HGB CONC 33.7 g/dl (32.0-36.5); MEAN CORPUSCULAR VOLUME 99.1 fl (80.0-96.0); MONO # 0.3 10^3/uL (0.0-0.8); MONO % 5.1 % (0.0-5.0); NEUTROPHILS # 3.6 10^3/uL (1.8-7.7); PLATELET COUNT, AUTOMATED 248 10^3/uL (150-450); RED BLOOD COUNT 4.23 10^6/uL (4.00-5.40); WHITE BLOOD COUNT 6.3 10^3/uL (4.0-10.0)
[2018-07-19 14:09] LABS: TOTAL 25(OH) VITAMIN D 11.1 NG/ML (30.0-100.0)
[2018-07-19 14:19] LABS: ALBUMIN 3.8 GM/DL (3.2-5.2); ALT/SGPT 21 U/L (12-78); BILIRUBIN,TOTAL 0.5 MG/DL (0.2-1.0); BLOOD UREA NITROGEN 7 MG/DL (7-18); CALCIUM LEVEL 8.4 MG/DL (8.5-10.1); CARBON DIOXIDE LEVEL 26 MEQ/L (21-32); CHLORIDE LEVEL 107 MEQ/L (98-107); CHOLESTEROL LEVEL 136 MG/DL (<200); CREATININE FOR GFR 0.73 MG/DL (0.55-1.30); FREE T4 0.79 NG/DL (0.76-1.46); GLOMERULAR FILTRATION RATE > 60.0 (>60); GLUCOSE, FASTING 99 MG/DL (70-100); HDL CHOLESTEROL 44 MG/DL (>40); LDL CHOLESTEROL 63 MG/DL (<100); NON-HDL-C 92 MG/DL; SODIUM LEVEL 139 MEQ/L (136-145); THYROID STIMULATING HORMONE 0.959 uIU/ML (0.358-3.740); TOTAL PROTEIN 7.5 GM/DL (6.4-8.2); TRIGLYCERIDES LEVEL 147 MG/DL (<150)
[2018-07-21 00:06] LABS: Lyme Disease IgG/IgM Antibodie <0.91 ISR (0.00-0.90); Lyme Disease IgM Ab Quantitati <0.80 index (0.00-0.79)
== END ==
LOC: M LAB REF 13:21
PROVIDERS: ATTEND Family Medicine
DX: Z13.228 Encounter for screening for other metabolic disorders (principal)

== ENCOUNTER → 2018-08-18 | Outpatient (REF) | payer OTHER | LOC: M LAB REF 13:11 | PROVIDERS: ATTEND Advanced Practice Midwife | DX: Z12.4 Encounter for screening for malignant neoplasm of cervix (principal) ==

== ENCOUNTER 2018-08-30 11:58 | Emergency (ER) | payer OTHER ==
[~2018-08-30] VITALS: Ht 160 cm; Wt 60.7 kg
[2018-08-30 11:59] VITALS: BP 127/72
[2018-08-30] MEDS ORDERED: ESCI10TA2 (12:04)
[2018-08-30] MEDS ORDERED: ALBU8.5H (12:04)
[2018-08-30 12:22] LABS: BASO % 0.4 % (0.0-1.0); EOS # 0.7 10^3/uL (0.0-0.50); HEMATOCRIT 39.8 % (36.0-47.0); HEMOGLOBIN 13.9 g/dl (12.0-15.5); LYMPH # 2.1 10^3/uL (1.5-6.5); LYMPH % 22.6 % (24.0-44.0); MEAN CORPUSCULAR HEMOGLOBIN 34.4 pg (27.0-33.0); MEAN CORPUSCULAR HGB CONC 34.9 g/dl (32.0-36.5); MEAN CORPUSCULAR VOLUME 98.5 fl (80.0-96.0); MONO # 0.3 10^3/uL (0.0-0.8); MONO % 3.1 % (0.0-5.0); NEUTROPHILS # 6.1 10^3/uL (1.8-7.7); NEUTROPHILS % 65.6 % (36.0-66.0); PLATELET COUNT, AUTOMATED 267 10^3/uL (150-450); RED BLOOD COUNT 4.04 10^6/uL (4.00-5.40); WHITE BLOOD COUNT 9.3 10^3/uL (4.0-10.0)
[2018-08-30 13:03] LABS: ALBUMIN 3.7 GM/DL (3.2-5.2); ALT/SGPT 20 U/L (12-78); BILIRUBIN,DIRECT 0.2 MG/DL (0.0-0.2); BILIRUBIN,TOTAL 0.7 MG/DL (0.2-1.0); BLOOD UREA NITROGEN 10 MG/DL (7-18); CARBON DIOXIDE LEVEL 29 MEQ/L (21-32); CHLORIDE LEVEL 106 MEQ/L (98-107); CREATININE FOR GFR 0.79 MG/DL (0.55-1.30); GLOMERULAR FILTRATION RATE > 60.0 (>60); GLUCOSE, FASTING 121 MG/DL (70-100); LIPASE 121 U/L (73-393); POTASSIUM SERUM 3.7 MEQ/L (3.5-5.1); SODIUM LEVEL 139 MEQ/L (136-145); TOTAL PROTEIN 7.1 GM/DL (6.4-8.2)
[2018-08-30] MEDS ORDERED: GI COCKTAIL 50ML BTL(HYOSCYAMINE/MAALOX/LIDOCAINE VISCOUS)(1:3:1) PO ONE (13:30)
== END 2018-08-30 14:57 | disposition left against medical advice (07) ==
LOC: M ED 11:58
DX: R10.13 Epigastric pain (principal); J45.909 Unspecified asthma, uncomplicated; Z79.899 Other long term (current) drug therapy; Z88.5 Allergy status to narcotic agent; Z88.8 Allergy status to other drugs, medicaments and biological substances; Z91.040 Latex allergy status

== ENCOUNTER → 2018-09-20 | Outpatient (REF) | payer OTHER ==
[~2018-09-20] MED LIST changes: +ALBU8.5H; +ESCI10TA2
[2018-09-20 16:01] LABS: APPEARANCE, URINE HAZY (CLEAR); BACTERIA, URINE AUTO 1+ (NEGATIVE); BILIRUBIN, URINE AUTO NEGATIVE (NEGATIVE); BLOOD, URINE BLOOD 1+ (NEGATIVE); COLOR, URINE YELLOW (YELLOW); GLUCOSE, URINE (UA) AUTO NEGATIVE (NEGATIVE); KETONE, URINE AUTO NEGATIVE (NEGATIVE); LEUKOCYTE ESTERASE, URINE AUTO 1+ (NEGATIVE); MUCUS, URINE SMALL (NEGATIVE); NITRITE, URINE AUTO NEGATIVE (NEGATIVE); PROTEIN, URINE AUTO NEGATIVE (NEGATIVE); RBC, URINE AUTO 0 /HPF (0-3); SPECIFIC GRAVITY URINE AUTO 1.009 (1.002-1.035); SQUAMOUS EPITHELIAL CELL UR AU 7 /HPF (0-6); UROBILINOGEN, URINE AUTO 0.2 mg/dL (0.0-2.0); WBC, URINE AUTO 11 /HPF (0-3)
== END ==
LOC: M LAB REF 14:58
PROVIDERS: ATTEND Family Medicine
DX: N30.00 Acute cystitis without hematuria (principal)

== ENCOUNTER 2019-04-06 08:56 | Emergency (ER) | payer OTHER ==
[~2019-04-06] VITALS: Ht 160 cm; Wt 61.9 kg
[2019-04-06] MEDS ORDERED: NS 1,000 ML IV ONE (09:15)
[2019-04-06] MEDS ORDERED: ALBU20IN INH (09:25)
[2019-04-06 09:46] LABS: BASO % 0.4 % (0.0-1.0); EOS # 0.7 10^3/uL (0.0-0.5); EOS % 8.3 % (0.0-3.0); HEMATOCRIT 40.2 % (36.0-47.0); HEMOGLOBIN 13.7 g/dl (12.0-15.5); LYMPH # 2.1 10^3/uL (1.5-5.0); LYMPH % 26.9 % (24.0-44.0); MEAN CORPUSCULAR HEMOGLOBIN 34.1 pg (27.0-33.0); MEAN CORPUSCULAR HGB CONC 34.1 g/dl (32.0-36.5); MONO # 0.4 10^3/uL (0.0-0.8); MONO % 5.1 % (0.0-5.0); NEUTROPHILS # 4.7 10^3/uL (1.5-8.5); PLATELET COUNT, AUTOMATED 251 10^3/uL (150-450); RED BLOOD COUNT 4.02 10^6/uL (4.00-5.40)
[2019-04-06 10:10] LABS: ALBUMIN 3.9 GM/DL (3.2-5.2); ALT/SGPT 18 U/L (12-78); AMYLASE 57 U/L (25-115); BILIRUBIN,DIRECT 0.2 MG/DL (0.0-0.2); BILIRUBIN,TOTAL 0.6 MG/DL (0.2-1.0); BLOOD UREA NITROGEN 14 MG/DL (7-18); CALCIUM LEVEL 8.2 MG/DL (8.5-10.1); CARBON DIOXIDE LEVEL 25 MEQ/L (21-32); CHLORIDE LEVEL 110 MEQ/L (98-107); CREATININE FOR GFR 0.78 MG/DL (0.55-1.30); GLOMERULAR FILTRATION RATE > 60.0 (>60); GLUCOSE, FASTING 85 MG/DL (70-100); LIPASE 92 U/L (73-393); SODIUM LEVEL 140 MEQ/L (136-145); TOTAL PROTEIN 6.9 GM/DL (6.4-8.2)
--- NOTE | 2019-04-06 10:39 | REP ---
RIGHT UPPER QUADRANT ULTRASOUND: Real-time sonographic evaluation of the right upper quadrant performed. Gallbladder demonstrates no evidence of intraluminal sludge or calculi, wall thickening or pericholecystic fluid. There is no intrahepatic or extrahepatic biliary dilatation, common bile duct measuring 4 mm. Liver and pancreas demonstrate no gross abnormality. Pancreas is not well seen due to overlying bowel gastric analysis. Right kidney demonstrates no hydronephrosis with normal size 11.6 cm in length. There is no ascites. IMPRESSION: Negative right upper quadrant ultrasound. Electronically Signed by Neno Thomson MD 04/07/2019 11:21 A
[2019-04-06 10:54] VITALS: BP 114/53
== END 2019-04-06 10:58 | disposition home or self-care (01) ==
LOC: M ED 08:56
DX: R19.7 Diarrhea, unspecified (principal); R10.9 Unspecified abdominal pain; Z79.899 Other long term (current) drug therapy

== ENCOUNTER → 2020-06-05 | Outpatient (REF) | payer OTHER ==
[~2020-06-05] MED LIST changes: +ALBU20IN INH; +ESCI10TA16; -ESCI10TA2
[2020-06-05 13:15] LABS: BASO % 0.5 % (0.0-1.0); EOS # 0.4 10^3/uL (0.0-0.5); EOS % 4.5 % (0.0-3.0); HEMATOCRIT 40.9 % (36.0-47.0); HEMOGLOBIN 13.8 g/dl (12.0-15.5); LYMPH # 1.9 10^3/uL (1.5-5.0); LYMPH % 23.2 % (24.0-44.0); MEAN CORPUSCULAR HEMOGLOBIN 33.7 pg (27.0-33.0); MEAN CORPUSCULAR HGB CONC 33.7 g/dl (32.0-36.5); MEAN CORPUSCULAR VOLUME 99.8 fl (80.0-96.0); MONO # 0.5 10^3/uL (0.0-0.8); NEUTROPHILS # 5.4 10^3/uL (1.5-8.5); NEUTROPHILS % 65.4 % (36.0-66.0); PLATELET COUNT, AUTOMATED 274 10^3/uL (150-450); WHITE BLOOD COUNT 8.2 10^3/uL (4.0-10.0)
[2020-06-05 13:57] LABS: ALT/SGPT 18 U/L (12-78); BILIRUBIN,TOTAL 0.5 MG/DL (0.2-1.0); BLOOD UREA NITROGEN 9 MG/DL (7-18); CALCIUM LEVEL 9.4 MG/DL (8.5-10.1); CARBON DIOXIDE LEVEL 28 MEQ/L (21-32); CHLORIDE LEVEL 106 MEQ/L (98-107); CHOLESTEROL LEVEL 129 MG/DL (<200); CREATININE FOR GFR 0.66 MG/DL (0.55-1.30); GLOMERULAR FILTRATION RATE > 60.0 (>60); GLUCOSE, FASTING 92 MG/DL (70-100); HDL CHOLESTEROL 52 MG/DL (>40); LDL CHOLESTEROL 65 MG/DL (<100); NON-HDL-C 77 MG/DL; POTASSIUM SERUM 4.3 MEQ/L (3.5-5.1); SODIUM LEVEL 139 MEQ/L (136-145); THYROID STIMULATING HORMONE 0.524 uIU/ML (0.358-3.740); TRIGLYCERIDES LEVEL 62 MG/DL (<150)
[2020-06-05 15:45] LABS: TOTAL 25(OH) VITAMIN D 15.3 NG/ML (30.0-100.0)
== END ==
LOC: M LAB REF 12:38
PROVIDERS: ATTEND Pediatrics
DX: Z00.00 Encounter for general adult medical examination without abnormal findings (principal)

== ENCOUNTER → 2020-08-07 | Outpatient (CLI) | payer OTHER ==
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
== END ==
LOC: M RAD 10:45
PROVIDERS: ATTEND Pediatrics
DX: Z04.1 Encounter for examination and observation following transport accident (principal)

== ENCOUNTER → 2020-08-08 | Outpatient (CLI) | payer OTHER ==
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
== END ==
LOC: M RAD 08:40
PROVIDERS: ATTEND Pediatrics
DX: Z04.1 Encounter for examination and observation following transport accident (principal)

== ENCOUNTER 2020-10-26 12:08 | Emergency (ER) | payer OTHER ==
[~2020-10-26] VITALS: Ht 160 cm; Wt 59.2 kg
[2020-10-26 12:08] VITALS: BP 131/65
== END 2020-10-26 12:50 | disposition left against medical advice (07) ==
LOC: M ED 12:08
DX: Z53.21 Procedure and treatment not carried out due to patient leaving prior to being seen by health care provider (principal)

== ENCOUNTER 2021-01-20 20:21 | Emergency (ER) | payer OTHER ==
[~2021-01-20] VITALS: Ht 160 cm; Wt 56.8 kg
[2021-01-20 20:22] VITALS: BP 142/66
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
--- OUTSIDE RECORDS SUMMARY | 2021-01-20 20:28 | CCD ---
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 [id number] Recurrent urinary tract infection Recurrent Urin abdiel Tract Infection Problem 05/24/2020 12:00:00 AM EDT [facility] ([facility]) [id number] Prophylactic immunotherapy Prophylactic Immunotherapy Problem 05/24/2020 12:00:00 AM EDT [facility] ([facility]) 555809009 Recurrent urinary tract infection Recurrent Urin abdiel Tract Infection Problem 05/24/2020 12:00:00 AM EDT [facility] ([facility]) [id number] Prophylactic immunotherapy Prophylactic Immunotherapy Problem 05/24/2020 12:00:00 AM EDT [facility] ([facility]) [id number] Recurrent urinary tract infection Recurrent Urin abdiel Tract Infection Problem 05/24/2020 12:00:00 AM EDT [facility] ([facility]) [id number] Influenza vaccine needed Influenza Vaccine Needed Pro blem 06/16/2019 12:00:00 AM EDT - 05/24/2020 12:00:00 AM EDT [facility] ([facility]) [id number] Influenza vaccine needed Influenza Vaccine Needed Pro blem 06/16/2019 12:00:00 AM EDT - 05/24/2020 12:00:00 AM EDT [facility] ([facility]) [id number] Influenza vaccine needed Influenza Vaccine Needed Pro blem 06/16/2019 12:00:00 AM EDT - 05/24/2020 12:00:00 AM EDT [facility] ([facility]) [id number] Influenza vaccine needed Influenza Vaccine Needed Pro blem 06/16/2019 12:00:00 AM EDT - 05/24/2020 12:00:00 AM EDT [facility] ([facility]) [id number] Influenza vaccine needed Influenza Vaccine Needed Pro blem 06/16/2019 12:00:00 AM EDT - 05/24/2020 12:00:00 AM EDT [facility] ([facility]) [id number] Finding by site Finding by Site Problem 12:00:00 AM EDT - 05/24/2020 12:00:00 AM EDT [facility] ([facility]) [id number] 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 Problem 12/06/2018 12:00:00 AM EDT - 05/24/2020 12:00:00 AM EDT [facility] ([facility]) [id number] Toxic shock syndrome Toxic Shock Syndrome Problem 12/06/2018 12:00:00 AM EDT - 05/24/2020 12:00:00 AM EDT [facility] ([facility]) [id number] Finding by site Finding by Site Problem 9 12:00:00 AM EDT - 05/24/2020 12:00:00 AM EDT [facility] ([facility]) [id number] 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 Problem 12/06/2018 12:00:00 AM EDT - 05/24/2020 12:00:00 AM EDT [facility] ([facility]) [id number] Toxic shock syndrome Toxic Shock Syndrome Problem 12/06/2018 12:00:00 AM EDT - 05/24/2020 12:00:00 AM EDT [facility] ([facility]) [id number] Finding by site Finding by Site Problem 9 12:00:00 AM EDT - 05/24/2020 12:00:00 AM EDT [facility] ([facility]) [id number] 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 Problem 12/06/2018 12:00:00 AM EDT - 05/24/2020 12:00:00 AM EDT [facility] ([facility]) [id number] Toxic shock syndrome Toxic Shock Syndrome Problem 12/06/2018 12:00:00 AM EDT - 05/24/2020 12:00:00 AM EDT [facility] ([facility]) [id number] Finding by site Finding by Site Problem 9 12:00:00 AM EDT - 05/24/2020 12:00:00 AM EDT [facility] ([facility]) [id number] 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 Problem 12/06/2018 12:00:00 AM EDT - 05/24/2020 12:00:00 AM EDT [facility] ([facility]) [id number] Toxic shock syndrome Toxic Shock Syndrome Problem 12/06/2018 12:00:00 AM EDT - 05/24/2020 12:00:00 AM EDT [facility] ([facility]) [id number] Finding by site Finding by Site Problem 12:00:00 AM EDT - 05/24/2020 12:00:00 AM EDT [facility] ([facility]) [id number] 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 Problem 12/06/2018 12:00:00 AM EDT - 05/24/2020 12:00:00 AM EDT [facility] ([facility]) [id number] Toxic shock syndrome Toxic Shock Syndrome Problem 12/06/2018 12:00:00 AM EDT - 05/24/2020 12:00:00 AM EDT [facility] ([facility]) [id number] Impacted tooth Impacted Tooth Problem 10/03/2018 12:00:00 AM EDT - 05/24/2020 12:00:00 AM EDT [facility] ([facility]) [id number] Impacted tooth Impacted Tooth Problem 10/03/2018 12:00:00 AM EDT - 05/24/2020 12:00:00 AM EDT [facility] ([facility]) 446493963 Impacted tooth Impacted Tooth Problem 10/03/2018 12:00:00 AM EDT - 05/24/2020 12:00:00 AM EDT [facility] ([facility]) [id number] Impacted tooth Impacted Tooth Problem 10/03/2018 12:00:00 AM EDT - 05/24/2020 12:00:00 AM EDT [facility] ([facility]) [id number] Impacted tooth Impacted Tooth Problem 10/03/2018 12:00:00 AM EDT - 05/24/2020 12:00:00 AM EDT [facility] ([facility]) [id number] Imaging of abdomen abnormal Imaging of Abdomen Abnorma l Problem 09/20/2018 12:00:00 AM EDT - 05/24/2020 12:00:00 AM EDT [facility] ([facility]) [id number] Acute cystitis Acute Cystitis Problem 09/20/2018 12:00:00 AM EDT - 05/24/2020 12:00:00 AM EDT [facility] ([facility]) [id number] Imaging of abdomen abnormal Imaging of Abdomen Abnorma l Problem 09/20/2018 12:00:00 AM EDT - 05/24/2020 12:00:00 AM EDT [facility] ([facility]) 86331135 Acute cystitis Acute Cystitis Problem 09/20/2018 12:00:00 AM EDT - 05/24/2020 12:00:00 AM EDT [facility] ([facility]) [id number] Imaging of abdomen abnormal Imaging of Abdomen Abnorma l Problem 09/20/2018 12:00:00 AM EDT - 05/24/2020 12:00:00 AM EDT [facility] ([facility]) [id number] Acute cystitis Acute Cystitis Problem 09/20/2018 12:00:00 AM EDT - 05/24/2020 12:00:00 AM EDT [facility] ([facility]) [id number] Imaging of abdomen abnormal Imaging of Abdomen Abnorma l Problem 09/20/2018 12:00:00 AM EDT - 05/24/2020 12:00:00 AM EDT [facility] ([facility]) [id number] Acute cystitis Acute Cystitis Problem 09/20/2018 12:00:00 AM EDT - 05/24/2020 12:00:00 AM EDT [facility] ([facility]) [id number] Imaging of abdomen abnormal Imaging of Abdomen Abnorma l Problem 09/20/2018 12:00:00 AM EDT - 05/24/2020 12:00:00 AM EDT [facility] ([facility]) [id number] Acute cystitis Acute Cystitis Problem 09/20/2018 12:00:00 AM EDT - 05/24/2020 12:00:00 AM EDT [facility] ([facility]) [id number] Acute abdomen Acute Abdomen Problem 08/30/2018 12 :00:00 AM EDT - 05/24/2020 12:00:00 AM EDT [facility] ([facility]) [id number] Nausea and vomiting Nausea and Vomiting Problem 0 08/30/2018 12:00:00 AM EDT - 05/24/2020 12:00:00 AM EDT [facility] ([facility]) [id number] Acute abdomen Acute Abdomen Problem 08/30/2018 12 :00:00 AM EDT - 05/24/2020 12:00:00 AM EDT [facility] ([facility]) [id number] Nausea and vomiting Nausea and Vomiting Problem 0 08/30/2018 12:00:00 AM EDT - 05/24/2020 12:00:00 AM EDT [facility] ([facility]) [id number] Acute abdomen Acute Abdomen Problem 08/30/2018 12 :00:00 AM EDT - 05/24/2020 12:00:00 AM EDT [facility] ([facility]) [id number] Nausea and vomiting Nausea and Vomiting Problem 0 08/30/2018 12:00:00 AM EDT - 05/24/2020 12:00:00 AM EDT [facility] ([facility]) [id number] Acute abdomen Acute Abdomen Problem 08/30/2018 12 :00:00 AM EDT - 05/24/2020 12:00:00 AM EDT [facility] ([facility]) 90462058 Nausea and vomiting Nausea and Vomiting Problem 0 08/30/2018 12:00:00 AM EDT - 05/24/2020 12:00:00 AM EDT [facility] ([facility]) [id number] Acute abdomen Acute Abdomen Problem 08/30/2018 12 :00:00 AM EDT - 05/24/2020 12:00:00 AM EDT [facility] ([facility]) [id number] Nausea and vomiting Nausea and Vomiting Problem 0 08/30/2018 12:00:00 AM EDT - 05/24/2020 12:00:00 AM EDT [facility] ([facility]) [id number] Dyspnea Dyspnea Problem 08/03/2018 12:0 0:00 AM EDT - 05/24/2020 12:00:00 AM EDT [facility] ([facility]) [id number] Dyspnea Dyspnea Problem 08/03/2018 12:0 0:00 AM EDT - 05/24/2020 12:00:00 AM EDT [facility] ([facility]) 855252052 Dyspnea Dyspnea Problem 08/03/2018 12:0 0:00 AM EDT - 05/24/2020 12:00:00 AM EDT [facility] ([facility]) [id number] Dyspnea Dyspnea Problem 08/03/2018 12:0 0:00 AM EDT - 05/24/2020 12:00:00 AM EDT [facility] ([facility]) [id number] Dyspnea Dyspnea Problem 08/03/2018 12:0 0:00 AM EDT - 05/24/2020 12:00:00 AM EDT [facility] ([facility]) [id number] Clinical finding Clinical Finding Problem 019 12:00:00 AM EDT - 05/24/2020 12:00:00 AM EDT [facility] ([facility]) [id number] Screening for malignant neoplasm of cerv ix Screening for Malignant Neoplasm of Cervix Problem 07/26/2018 12:00:00 AM EDT - 05/24/2020 12:00:00 AM EDT [facility] ([facility]) [id number] Clinical finding Clinical Finding Problem 019 12:00:00 AM EDT - 05/24/2020 12:00:00 AM EDT [facility] ([facility]) [id number] Screening for malignant neoplasm of cerv ix Screening for Malignant Neoplasm of Cervix Problem 07/26/2018 12:00:00 AM EDT - 05/24/2020 12:00:00 AM EDT [facility] ([facility]) [id number] Clinical finding Clinical Finding Problem 019 12:00:00 AM EDT - 05/24/2020 12:00:00 AM EDT [facility] ([facility]) [id number] Screening for malignant neoplasm of cerv ix Screening for Malignant Neoplasm of Cervix Problem 07/26/2018 12:00:00 AM EDT - 05/24/2020 12:00:00 AM EDT [facility] ([facility]) [id number] Clinical finding Clinical Finding Problem 019 12:00:00 AM EDT - 05/24/2020 12:00:00 AM EDT [facility] ([facility]) [id number] Screening for malignant neoplasm of cerv ix Screening for Malignant Neoplasm of Cervix Problem 07/26/2018 12:00:00 AM EDT - 05/24/2020 12:00:00 AM EDT [facility] ([facility]) [id number] Clinical finding Clinical Finding Problem 019 12:00:00 AM EDT - 05/24/2020 12:00:00 AM EDT [facility] ([facility]) [id number] Screening for malignant neoplasm of cerv ix Screening for Malignant Neoplasm of Cervix Problem 07/26/2018 12:00:00 AM EDT - 05/24/2020 12:00:00 AM EDT [facility] ([facility]) [id number] Pelvic and perineal pain Pelvic and Perineal Pain Prob cristal 07/01/2018 12:00:00 AM EDT - 05/24/2020 12:00:00 AM EDT [place] ([facility]) [id number] Impacted cerumen of bilateral ears Impac sofie Cerumen of Bilateral Ears Problem 07/01/2018 12:00:00 AM EDT - 05/24/2020 12:00:00 AM EDT [facility] ([facility]) [id number] Endocrine/metabolic screening Endocrine/metabolic Scre ening Problem 07/01/2018 12:00:00 AM EDT - 05/24/2020 12:00:00 AM EDT [facility] ([facility]) [id number] Pelvic and perineal pain Pelvic and Perineal Pain Prob cristal 07/01/2018 12:00:00 AM EDT - 05/24/2020 12:00:00 AM EDT [facility] ([facility]) [id number] Impacted cerumen of bilateral ears Impac sofie Cerumen of Bilateral Ears Problem 07/01/2018 12:00:00 AM EDT - 05/24/2020 12:00:00 AM EDT [facility] ([facility]) 251361113 Endocrine/metabolic screening Endocrine/metabolic Scre ening Problem 07/01/2018 12:00:00 AM EDT - 05/24/2020 12:00:00 AM EDT [facility] ([facility]) [id number] Pelvic and perineal pain Pelvic and Perineal Pain Prob cristal 07/01/2018 12:00:00 AM EDT - 05/24/2020 12:00:00 AM EDT [facility] ([facility]) [id number] Impacted cerumen of bilateral ears Impac sofie Cerumen of Bilateral Ears Problem 07/01/2018 12:00:00 AM EDT - 05/24/2020 12:00:00 AM EDT [facility] ([facility]) 237956011 Endocrine/metabolic screening Endocrine/metabolic Scre ening Problem 07/01/2018 12:00:00 AM EDT - 05/24/2020 12:00:00 AM EDT [facility] ([facility]) [id number] Pelvic and perineal pain Pelvic and Perineal Pain Prob cristal 07/01/2018 12:00:00 AM EDT - 05/24/2020 12:00:00 AM EDT [facility] ([facility]) [id number] Impacted cerumen of bilateral ears Impac sofie Cerumen of Bilateral Ears Problem 07/01/2018 12:00:00 AM EDT - 05/24/2020 12:00:00 AM EDT [facility] ([facility]) [id number] Endocrine/metabolic screening Endocrine/metabolic Scre ening Problem 07/01/2018 12:00:00 AM EDT - 05/24/2020 12:00:00 AM EDT [facility] ([facility]) [id number] Pelvic and perineal pain Pelvic and Perineal Pain Prob cristal 07/01/2018 12:00:00 AM EDT - 05/24/2020 12:00:00 AM EDT [facility] ([facility]) [id number] Impacted cerumen of bilateral ears Impac sofie Cerumen of Bilateral Ears Problem 07/01/2018 12:00:00 AM EDT - 05/24/2020 12:00:00 AM EDT [facility] ([facility]) [id number] Endocrine/metabolic screening Endocrine/metabolic Scre ening Problem 07/01/2018 12:00:00 AM EDT - 05/24/2020 12:00:00 AM EDT [facility] ([facility]) Surgeries/Procedures Procedure Description Date Indications Data Source(s) [id number] SARS-COV-2 COVID-19 AMP PRB 07/10/2020 12:00:00 AM EDT [facility] PROF VALDEZ ALLG IMMNTX X W/PRV ALLGIC XTRCS NJXS 2020 12:00:00 AM EST [facility] ([facility]) PREPJ& ALLERGEN IMMUNOTHERAPY 1/REFRIGERATION MANAGER ANTIGEN 03/12/2020 12:00:00 AM EST [facility] ([facility]) PREPJ& ALLERGEN IMMUNOTHERAPY 1/REFRIGERATION MANAGER ANTIGEN 03/12/2020 12:00:00 AM EST [facility] ([facility]) PROF VALDEZ ALLG IMMNTX X W/PRV ALLGIC XTRCS NJXS 2019 12:00:00 AM EST [facility] ([facility]) PROF VALDEZ ALLG IMMNTX X W/PRV ALLGIC XTRCS NJXS 2019 12:00:00 AM EST [facility] ([facility]) PROF COURTNEY ALLG IMMNTX X W/PRV ALLGIC XTRCS NJXS 2019 12:00:00 AM EST [facility] ([facility]) PROF VALDEZ ALLG IMMNTX X W/PRV ALLGIC XTRCS NJXS 2019 12:00:00 AM EST [facility] ([facility]) PROF VALDEZ ALLG IMMNTX X W/PRV ALLGIC XTRCS NJXS 2019 12:00:00 AM EST [facility] ([facility]) PROF COURTNEY ALLG IMMNTX X W/PRV ALLGIC XTRCS NJXS 2019 12:00:00 AM EST [facility] ([facility]) PROF SORENSON ALLG IMMNTX X W/PRV ALLGIC XTRCS NJXS 2019 12:00:00 AM EST [facility] ([facility]) PROF VALDEZ ALLG IMMNTX X W/PRV ALLGIC XTRCS NJXS 2019 12:00:00 AM EDT [facility] ([facility]) PROF SORENSON ALLG IMMNTX X W/PRV ALLGIC XTRCS NJXS 2019 12:00:00 AM EDT [facility] ([facility]) PROF SVCS ALLG IMMNTX X W/PRV ALLGIC XTRCS NJXS 2019 12:00:00 AM EDT [facility] ([facility]) PROF SV ALLG IMMNTX X W/PRV ALLGIC XTRCS NJXS 2019 12:00:00 AM EDT [facility] ([facility]) PROF SV ALLG IMMNTX X W/PRV ALLGIC XTRCS NJXS 2019 12:00:00 AM EDT [facility] ([facility]) PROF SV ALLG IMMNTX X W/PRV ALLGIC XTRCS NJXS 2019 12:00:00 AM EDT [facility] ([facility]) Results ID Date Data Source [id number] 10/28/2020 01:07:00 PM EDT [facility]) Name Value Range Interpretation Code Description Data Carli rce(s) Supporting Document(s) SARS-CoV-2 (COVID-19) RNA [Presence] in Respiratory specimen by CONCETTA with probe detection not detected not detected Sars Cov 2 RNA [facility]) ID Date Data Source [id number] 10/28/2020 01:07:00 PM EDT [facility]) Name Value Range Interpretation Code Description Data Carli rce(s) Supporting Document(s) SARS-CoV-2 (COVID-19) RNA [Presence] in Respiratory specimen by CONCETTA with probe detection not detected not detected Sars Cov 2 RNA [facility]) ID Date Data Source [id number] 10/08/2020 08:35:00 AM EDT [facility]) Name Value Range Interpretation Code Description Data Carli rce(s) Supporting Document(s) HCG negative Hcg [facility] ([facility]) ID Date Data Source [id number] 10/08/2020 08:35:00 AM EDT [facility] ([facility]) Name Value Range Interpretation Code Description Data Carli rce(s) Supporting Document(s) HCG negative Hcg [facility] ([facility]) ID Date Data Source [id number] 10/03/2020 01:39:00 PM EDT [facility] ([facility]) Name Value Range Interpretation Code Description Data Carli rce(s) Supporting Document(s) HCG negative Hcg [facility] ([facility]) ID Date Data Source [id number] 10/03/2020 01:39:00 PM EDT [facility] ([facility]) Name Value Range Interpretation Code Description Data Carli rce(s) Supporting Document(s) HCG negative Hcg [facility] ([facility]) ID Date Data Source [id number] 10/02/2020 08:39:00 AM EDT [facility] ([facility]) Name Value Range Interpretation Code Description Data Carli rce(s) Supporting Document(s) HCG negative Hcg [facility] ([facility]) ID Date Data Source [id number] 10/02/2020 08:39:00 AM EDT [facility] ([facility]) Name Value Range Interpretation Code Description Data Carli rce(s) Supporting Document(s) HCG negative Hcg [facility] ([facility]) ID Date Data Source [id number] 07/10/2020 11:30:00 AM EDT [facility] Name Value Range Interpretation Code Description Data Carli rce(s) Supporting Document(s) Respiratory specimen severe acute respir atory syndrome coronavirus 2 (SARS-CoV-2) RNA Negative (qualifier value) [facility] This lab was ordered by Caydenhéctor ribeiro and reported by . ID Date Data Source [id number] 07/10/2020 10:32:00 PM EDT [facility] Name Value Range Interpretation Code Description Data Carli rce(s) Supporting Document(s) SARS-CoV-2 RNA INHOUSE Negative Normal (applies to non-n umeric results) [facility] THIS IS A [facility] REPORTABLE COMMUNICABLE DISEASE. Testing was performed using the Punch[employer] COVID-19 MDx Assay. This test has been authorized by FDA under an (Emergency Use Authorization) EUA for use by authorized laboratories for individuals who are suspected of COVID-19 by their healthcare provider. This test is only authorized for the duration of the declaration that circumstances exist justifying the authorization of emergency use of in vitro diagnostic tests for detection and/or diagnosis of SARS-CoV-2. Methodology: Endpoint RT-PCR. Fact sheets for this EUA assay can be found at the following links: Providers: https://www.fda.gov/media/589104/download Patients : https://www.fda.gov/media/290848/download THIS IS A [facility] REPORTABLE COMMUNICABLE DISEASE Negative results do not preclude SARS-CoV-2 infection and should not be used as the sole basis for patient management decisions. Negative results must be combined with clinical observations,patient history, and epidemiological information. ID Date Data Source [id number] 06/05/2020 10:42:00 AM EDT [facility]) Name Value Range Interpretation Code Description Data Carli rce(s) Supporting Document(s) HCG negative Hcg [facility]) ID Date Data Source [id number] 06/05/2020 10:42:00 AM EDT [facility]) Name Value Range Interpretation Code Description Data Carli rce(s) Supporting Document(s) HCG negative Hcg [facility]) ID Date Data Source [id number] 06/05/2020 10:42:00 AM EDT [facility]) Name Value Range Interpretation Code Description Data Carli rce(s) Supporting Document(s) HCG negative Hcg [facility] ([facility]) ID Date Data Source [id number] 06/05/2020 10:42:00 AM EDT [facility] ([facility]) Name Value Range Interpretation Code Description Data Carli rce(s) Supporting Document(s) HCG negative Hcg [facility] ([facility]) ID Date Data Source [id number] 06/05/2020 10:35:00 AM EDT [facility] ([facility]) Name Value Range Interpretation Code Description Data Carli rce(s) Supporting Document(s) total 25(oh) vitamin D 15.3 NG/mL 30.0-100.0 Below low normal T otal 25(Oh) Vitamin D [facility] ([facility]) ID Date Data Source [id number] 06/05/2020 10:35:00 AM [facility] Name Value Range Interpretation Code Description Data Carli rce(s) Supporting Document(s) thyroid stimulating hormone 0.524 uIU/mL 0.358-3.740 Thyroid Stimulating Hormone [facility] ([facility]) ID Date Data Source [id number] 06/05/2020 10:35:00 AM EDT [facility] ([facility]) Name Value Range Interpretation Code Description Data Carli rce(s) Supporting Document(s) triglycerides level 62 mg/dL <150 Triglycerides Le kvng [facility] ([facility]) HDL cholesterol 52 mg/dL >40 HDL Cholesterol ATHE NA ([facility]) Cholesterol in LDL [Mass/volume] in Serum or Plasma 65 mg/dL <1 00 LDL Cholesterol [facility] ([facility]) cholesterol level 129 mg/dL <200 Cholesterol Level [facility] ([facility]) non-HDL-C 77 mg/dL Non-hdl-c [facility] ([facility]) cholesterol risk ratio <5 Cholesterol R isk Ratio [facility] ([facility]) ID Date Data Source [id number] 06/05/2020 10:35:00 AM EDT [facility] [facility] Name Value Range Interpretation Code Description Data Carli rce(s) Supporting Document(s) blood urea nitrogen 9 mg/dL 7-18 Blood Urea Nitro gen [facility] ([facility]) creatinine for GFR 0.66 mg/dL 0.55-1.30 Creatinine for GF R [facility] ([facility]) glucose, fasting 92 mg/dL 70-100 Glucose, Fasting AT [facility] ([facility]) potassium serum 4.3 mEq/L 3.5-5.1 Potassium Serum ATHE NA ([facility]) sodium level 139 mEq/L 136-145 Sodium Level [facility] ([facility]) chloride level 106 mEq/L 98-107 Chloride Level [facility] ([facility]) glomerular filtration rate > 60.0 >60 Glomerula r Filtration Rate [facility] ([facility]) AST/SGOT 12 U/L 7-37 AST/SGOT [facility] ([facility]) anion gap 5 mEq/L 8-16 Below low normal Anion Gap [facility] ( [facility]) calcium level 9.4 mg/dL 8.5-10.1 Calcium Level [facility] ( [facility]) carbon dioxide level 28 mEq/L 21-32 Carbon Dioxide Level [facility] ([facility]) total protein 7.0 gm/dL 6.4-8.2 Total Protein [facility] ( [facility]) ALT/SGPT 18 U/L 12-78 ALT/SGPT [facility] ([facility]) albumin 4.0 gm/dL 3.2-5.2 Albumin [facility] ([facility]) alkaline phosphatase 68 U/L 45-117 Alkaline Phosph atase [facility] ([facility]) bilirubin,total 0.5 mg/dL 0.2-1.0 Bilirubin,total ATHE NA ([facility]) albumin/globulin ratio 1.2-2.2 Albumin/globu frank Ratio [facility] ([facility]) ID Date Data Source [id number] 06/05/2020 10:35:00 AM EDT [facility] ([facility]) Name Value Range Interpretation Code Description Data Carli rce(s) Supporting Document(s) white blood count 8.2 10 4.0-10.0 White Blood Count [facility] ([facility]) red blood count 4.10 10 4.00-5.40 Red Blood Count ATHE NA ([facility]) mean corpuscular hemoglobin 33.7 pg 27.0-33.0 Above high no rmal Mean Corpuscular Hemoglobin [facility] ([facility]) hemoglobin 13.8 g/dL 12.0-15.5 Hemoglobin [facility] ([facility]) mean corpuscular volume 99.8 fL 80.0-96.0 Above high normal Mean Corpuscular Volume [facility] ([facility]) hematocrit 40.9 % 36.0-47.0 Hematocrit [facility] ([facility]) red cell distribution width 12.3 % 11.5-14.5 Red Cell Distribution Width [facility] ([facility]) platelet count, automated 274 10 150-450 Platelet C ount, Automated [facility] ([facility]) mean corpuscular HGB conc 33.7 g/dL 32.0-36.5 Mean Corpu scular HGB Conc [facility] ([facility]) mono % 6.0 % 2.0-8.0 Pine % [facility] ([facility]) eos % 4.5 % 0.0-3.0 Above high normal Eos % [facility] ([facility]) lymph % 23.2 % 24.0-44.0 Below low normal Lymph % [facility] ( [facility]) neutrophils % 65.4 % 36.0-66.0 Neutrophils % [facility] ( [facility]) immature granulocyte % 0.4 % 0-3.0 Immature Gran ulocyte % [facility] ([facility]) nucleated red blood cell % 0.0 % 0-0 Nucleated Red Blood Cell % [facility] ([facility]) baso % 0.5 % 0.0-1.0 Baso % [facility] ([facility]) eos # 0.4 10 0.0-0.5 Eos # [facility] ([facility]) mono # 0.5 10 0.0-0.8 Pine # [facility] ([facility]) neutrophils # 5.4 10 1.5-8.5 Neutrophils # [facility] ( [facility]) lymph # 1.9 10 1.5-5.0 Lymph # [facility] ([facility]) baso # 0.0 10 0.0-0.2 Baso # [facility] ([facility]) ID Date Data Source [id number] 06/05/2020 10:35:00 AM EDT [facility] ([facility]) Name Value Range Interpretation Code Description Data Carli rce(s) Supporting Document(s) total 25(oh) vitamin D 15.3 NG/mL 30.0-100.0 Below low normal T otal 25(Oh) Vitamin D [facility] ([facility]) ID Date Data Source [id number] 06/05/2020 10:35:00 AM EDT [facility] ([facility]) Name Value Range Interpretation Code Description Data Carli rce(s) Supporting Document(s) thyroid stimulating hormone 0.524 uIU/mL 0.358-3.740 Thyroid Stimulating Hormone [facility] ([facility]) ID Date Data Source [id number] 06/05/2020 10:35:00 AM EDT [facility] ([facility]) Name Value Range Interpretation Code Description Data Carli rce(s) Supporting Document(s) HDL cholesterol 52 mg/dL >40 HDL Cholesterol ATHE NA ([facility]) cholesterol level 129 mg/dL <200 Cholesterol Level [facility] ([facility]) triglycerides level 62 mg/dL <150 Triglycerides Le kvng [facility] ([facility]) cholesterol risk ratio <5 Cholesterol R isk Ratio [facility] ([facility]) non-HDL-C 77 mg/dL Non-hdl-c [facility] ([facility]) Cholesterol in LDL [Mass/volume] in Serum or Plasma 65 mg/dL <1 00 LDL Cholesterol [facility] ([facility]) ID Date Data Source [id number] 06/05/2020 10:35:00 AM EDT [facility] ([facility]) Name Value Range Interpretation Code Description Data Carli rce(s) Supporting Document(s) glucose, fasting 92 mg/dL 70-100 Glucose, Fasting AT [facility] ([facility]) creatinine for GFR 0.66 mg/dL 0.55-1.30 Creatinine for GF R [facility] ([facility]) sodium level 139 mEq/L 136-145 Sodium Level [facility] ([facility]) glomerular filtration rate > 60.0 >60 Glomerula r Filtration Rate [facility] ([facility]) potassium serum 4.3 mEq/L 3.5-5.1 Potassium Serum ATHE ([facility]) blood urea nitrogen 9 mg/dL 7-18 Blood Urea Nitro gen [facility] ([facility]) carbon dioxide level 28 mEq/L 21-32 Carbon Dioxide Level [facility] ([facility]) calcium level 9.4 mg/dL 8.5-10.1 Calcium Level [facility] ( [facility]) anion gap 5 mEq/L 8-16 Below low normal Anion Gap [facility] ( [facility]) chloride level 106 mEq/L 98-107 Chloride Level [facility] ([facility]) alkaline phosphatase 68 U/L 45-117 Alkaline Phosph atase [facility] ([facility]) total protein 7.0 gm/dL 6.4-8.2 Total Protein [facility] ( [facility]) AST/SGOT 12 U/L 7-37 AST/SGOT [facility] ([facility]) ALT/SGPT 18 U/L 12-78 ALT/SGPT [facility] ([facility]) bilirubin,total 0.5 mg/dL 0.2-1.0 Bilirubin,total ATHE NA ([facility]) albumin/globulin ratio 1.2-2.2 Albumin/globu frank Ratio [facility] ([facility]) albumin 4.0 gm/dL 3.2-5.2 Albumin [facility] ([facility]) ID Date Data Source [id number] 06/05/2020 10:35:00 AM EDT [facility] ([facility]) Name Value Range Interpretation Code Description Data Carli rce(s) Supporting Document(s) red blood count 4.10 10 4.00-5.40 Red Blood Count ATHE ([facility]) white blood count 8.2 10 4.0-10.0 White Blood Count [facility] ([facility]) hematocrit 40.9 % 36.0-47.0 Hematocrit [facility] ([facility]) hemoglobin 13.8 g/dL 12.0-15.5 Hemoglobin [facility] ([facility]) mean corpuscular volume 99.8 fL 80.0-96.0 Above high normal Mean Corpuscular Volume [facility] ([facility]) mean corpuscular hemoglobin 33.7 pg 27.0-33.0 Above high no rmal Mean Corpuscular Hemoglobin [facility] ([facility]) mean corpuscular HGB conc 33.7 g/dL 32.0-36.5 Mean Corpu scular HGB Conc [facility] ([facility]) red cell distribution width 12.3 % 11.5-14.5 Red Cell Distribution Width [facility] ([facility]) platelet count, automated 274 10 150-450 Platelet C ount, Automated [facility] ([facility]) mono % 6.0 % 2.0-8.0 Pine % [facility] ([facility]) lymph % 23.2 % 24.0-44.0 Below low normal Lymph % [facility] ( [facility]) eos % 4.5 % 0.0-3.0 Above high normal Eos % [facility] ([facility]) neutrophils % 65.4 % 36.0-66.0 Neutrophils % [facility] ( [facility]) immature granulocyte % 0.4 % 0-3.0 Immature Gran ulocyte % [facility] ([facility]) neutrophils # 5.4 10 1.5-8.5 Neutrophils # [facility] ( [facility]) nucleated red blood cell % 0.0 % 0-0 Nucleated Red Blood Cell % [facility] ([facility]) baso % 0.5 % 0.0-1.0 Baso % [facility] ([facility]) eos # 0.4 10 0.0-0.5 Eos # [facility] ([facility]) baso # 0.0 10 0.0-0.2 Baso # [facility] ([facility]) mono # 0.5 10 0.0-0.8 Pine # [facility] ([facility]) lymph # 1.9 10 1.5-5.0 Lymph # [facility] ([facility]) ID Date Data Source [id number] 06/05/2020 10:35:00 AM EDT [facility] ([facility]) Name Value Range Interpretation Code Description Data Carli rce(s) Supporting Document(s) total 25(oh) vitamin D 15.3 NG/mL 30.0-100.0 Below low normal T otal 25(Oh) Vitamin D [facility] ([facility]) ID Date Data Source [id number] 06/05/2020 10:35:00 AM EDT [facility] ([facility]) Name Value Range Interpretation Code Description Data Carli rce(s) Supporting Document(s) thyroid stimulating hormone 0.524 uIU/mL 0.358-3.740 Thyroid Stimulating Hormone [facility] ([facility]) ID Date Data Source [id number] 06/05/2020 10:35:00 AM EDT [facility] ([facility]) Name Value Range Interpretation Code Description Data Carli rce(s) Supporting Document(s) triglycerides level 62 mg/dL <150 Triglycerides Le kvng [facility] ([facility]) cholesterol level 129 mg/dL <200 Cholesterol Level [facility] ([facility]) HDL cholesterol 52 mg/dL >40 HDL Cholesterol ATHE NA ([facility]) Cholesterol in LDL [Mass/volume] in Serum or Plasma 65 mg/dL <1 00 LDL Cholesterol [facility] ([facility]) cholesterol risk ratio <5 Cholesterol R isk Ratio [facility] ([facility]) non-HDL-C 77 mg/dL Non-hdl-c [facility] ([facility]) ID Date Data Source [id number] 06/05/2020 10:35:00 AM EDT [facility] ([facility]) Name Value Range Interpretation Code Description Data Carli rce(s) Supporting Document(s) blood urea nitrogen 9 mg/dL 7-18 Blood Urea Nitro gen [facility] ([facility]) glucose, fasting 92 mg/dL 70-100 Glucose, Fasting AT [facility] ([facility]) creatinine for GFR 0.66 mg/dL 0.55-1.30 Creatinine for GF R [facility] ([facility]) glomerular filtration rate > 60.0 >60 Glomerula r Filtration Rate [facility] ([facility]) potassium serum 4.3 mEq/L 3.5-5.1 Potassium Serum ATHE ([facility]) sodium level 139 mEq/L 136-145 Sodium Level [facility] ([facility]) chloride level 106 mEq/L 98-107 Chloride Level [facility] ([facility]) carbon dioxide level 28 mEq/L 21-32 Carbon Dioxide Level [facility] ([facility]) calcium level 9.4 mg/dL 8.5-10.1 Calcium Level [facility] ( [facility]) anion gap 5 mEq/L 8-16 Below low normal Anion Gap [facility] ( [facility]) AST/SGOT 12 U/L 7-37 AST/SGOT [facility] ([facility]) ALT/SGPT 18 U/L 12-78 ALT/SGPT [facility] ([facility]) alkaline phosphatase 68 U/L 45-117 Alkaline Phosph atase [facility] ([facility]) bilirubin,total 0.5 mg/dL 0.2-1.0 Bilirubin,total ATHE NA ([facility]) albumin 4.0 gm/dL 3.2-5.2 Albumin [facility] ([facility]) total protein 7.0 gm/dL 6.4-8.2 Total Protein [facility] ( [facility]) albumin/globulin ratio 1.2-2.2 Albumin/globu frank Ratio [facility] ([facility]) ID Date Data Source [id number] 06/05/2020 10:35:00 AM EDT [facility] ([facility]) Name Value Range Interpretation Code Description Data Carli rce(s) Supporting Document(s) white blood count 8.2 10 4.0-10.0 White Blood Count [facility] ([facility]) hemoglobin 13.8 g/dL 12.0-15.5 Hemoglobin [facility] ([facility]) red blood count 4.10 10 4.00-5.40 Red Blood Count AT[facility] ([facility]) hematocrit 40.9 % 36.0-47.0 Hematocrit [facility] ([facility]) mean corpuscular volume 99.8 fL 80.0-96.0 Above high normal Mean Corpuscular Volume [facility] ([facility]) mean corpuscular hemoglobin 33.7 pg 27.0-33.0 Above high no rmal Mean Corpuscular Hemoglobin [facility] ([facility]) mean corpuscular HGB conc 33.7 g/dL 32.0-36.5 Mean Corpu scular HGB Conc [facility] ([facility]) red cell distribution width 12.3 % 11.5-14.5 Red Cell Distribution Width [facility] ([facility]) platelet count, automated 274 10 150-450 Platelet C ount, Automated [facility] ([facility]) neutrophils % 65.4 % 36.0-66.0 Neutrophils % [facility] ( [facility]) lymph % 23.2 % 24.0-44.0 Below low normal Lymph % [facility] ( [facility]) mono % 6.0 % 2.0-8.0 Pine % [facility] ([facility]) eos % 4.5 % 0.0-3.0 Above high normal Eos % [facility] ([facility]) baso % 0.5 % 0.0-1.0 Baso % [facility] ([facility]) immature granulocyte % 0.4 % 0-3.0 Immature Gran ulocyte % [facility] ([facility]) nucleated red blood cell % 0.0 % 0-0 Nucleated Red Blood Cell % [facility] ([facility]) neutrophils # 5.4 10 1.5-8.5 Neutrophils # [facility] ( [facility]) mono # 0.5 10 0.0-0.8 Pine # [facility] ([facility]) lymph # 1.9 10 1.5-5.0 Lymph # [facility] ([facility]) eos # 0.4 10 0.0-0.5 Eos # [facility] ([facility]) baso # 0.0 10 0.0-0.2 Baso # [facility] ([facility]) ID Date Data Source [id number] 06/05/2020 10:35:00 AM EDT [facility] ([facility]) Name Value Range Interpretation Code Description Data Carli rce(s) Supporting Document(s) total 25(oh) vitamin D 15.3 NG/mL 30.0-100.0 Below low normal T otal 25(Oh) Vitamin D [facility] ([facility]) ID Date Data Source [id number] 06/05/2020 10:35:00 AM EDT [facility] ([facility]) Name Value Range Interpretation Code Description Data Carli rce(s) Supporting Document(s) thyroid stimulating hormone 0.524 uIU/mL 0.358-3.740 Thyroid Stimulating Hormone [facility] ([facility]) ID Date Data Source [id number] 06/05/2020 10:35:00 AM EDT [facility] ([facility]) Name Value Range Interpretation Code Description Data Carli rce(s) Supporting Document(s) triglycerides level 62 mg/dL <150 Triglycerides Le kvng [facility] ([facility]) non-HDL-C 77 mg/dL Non-hdl-c [facility] ([facility]) HDL cholesterol 52 mg/dL >40 HDL Cholesterol ATHE NA ([facility]) cholesterol level 129 mg/dL <200 Cholesterol Level [facility] ([facility]) Cholesterol in LDL [Mass/volume] in Serum or Plasma 65 mg/dL <1 00 LDL Cholesterol [facility] ([facility]) cholesterol risk ratio <5 Cholesterol R isk Ratio [facility] ([facility]) ID Date Data Source [id number] 06/05/2020 10:35:00 AM EDT [facility] ([facility]) Name Value Range Interpretation Code Description Data Carli rce(s) Supporting Document(s) creatinine for GFR 0.66 mg/dL 0.55-1.30 Creatinine for GF R [facility] ([facility]) sodium level 139 mEq/L 136-145 Sodium Level [facility] ([facility]) blood urea nitrogen 9 mg/dL 7-18 Blood Urea Nitro gen [facility] ([facility]) glucose, fasting 92 mg/dL 70-100 Glucose, Fasting AT [facility] ([facility]) glomerular filtration rate > 60.0 >60 Glomerula r Filtration Rate [facility] ([facility]) potassium serum 4.3 mEq/L 3.5-5.1 Potassium Serum ATHE NA ([facility]) chloride level 106 mEq/L 98-107 Chloride Level [facility] ([facility]) carbon dioxide level 28 mEq/L 21-32 Carbon Dioxide Level [facility] ([facility]) AST/SGOT 12 U/L 7-37 AST/SGOT [facility] ([facility]) ALT/SGPT 18 U/L 12-78 ALT/SGPT [facility] ([facility]) anion gap 5 mEq/L 8-16 Below low normal Anion Gap [facility] ( [facility]) calcium level 9.4 mg/dL 8.5-10.1 Calcium Level [facility] ( [facility]) albumin 4.0 gm/dL 3.2-5.2 Albumin [facility] ([facility]) total protein 7.0 gm/dL 6.4-8.2 Total Protein [facility] ( [facility]) alkaline phosphatase 68 U/L 45-117 Alkaline Phosph atase [facility] ([facility]) bilirubin,total 0.5 mg/dL 0.2-1.0 Bilirubin,total ATHE NA ([facility]) albumin/globulin ratio 1.2-2.2 Albumin/globu frank Ratio [facility] ([facility]) ID Date Data Source [id number] 06/05/2020 10:35:00 AM EDT [facility] ([facility]) Name Value Range Interpretation Code Description Data Carli rce(s) Supporting Document(s) white blood count 8.2 10 4.0-10.0 White Blood Count [facility] ([facility]) red blood count 4.10 10 4.00-5.40 Red Blood Count AT[facility] ([facility]) hematocrit 40.9 % 36.0-47.0 Hematocrit [facility] ([facility]) mean corpuscular volume 99.8 fL 80.0-96.0 Above high normal Mean Corpuscular Volume [facility] ([facility]) hemoglobin 13.8 g/dL 12.0-15.5 Hemoglobin [facility] ([facility]) mean corpuscular hemoglobin 33.7 pg 27.0-33.0 Above high no rmal Mean Corpuscular Hemoglobin [facility] ([facility]) mean corpuscular HGB conc 33.7 g/dL 32.0-36.5 Mean Corpu scular HGB Conc [facility] ([facility]) platelet count, automated 274 10 150-450 Platelet C ount, Automated [facility] ([facility]) red cell distribution width 12.3 % 11.5-14.5 Red Cell Distribution Width [facility] ([facility]) neutrophils % 65.4 % 36.0-66.0 Neutrophils % [facility] ( [facility]) eos % 4.5 % 0.0-3.0 Above high normal Eos % [facility] ([facility]) mono % 6.0 % 2.0-8.0 Pine % [facility] ([facility]) lymph % 23.2 % 24.0-44.0 Below low normal Lymph % [facility] ( [facility]) neutrophils # 5.4 10 1.5-8.5 Neutrophils # [facility] ( [facility]) immature granulocyte % 0.4 % 0-3.0 Immature Gran ulocyte % [facility] ([facility]) baso % 0.5 % 0.0-1.0 Baso % [facility] ([facility]) nucleated red blood cell % 0.0 % 0-0 Nucleated Red Blood Cell % [facility] ([facility]) mono # 0.5 10 0.0-0.8 Pine # [facility] ([facility]) baso # 0.0 10 0.0-0.2 Baso # [facility] ([facility]) lymph # 1.9 10 1.5-5.0 Lymph # [facility] ([facility]) eos # 0.4 10 0.0-0.5 Eos # [facility] ([facility]) ID Date Data Source [id number] 05/24/2020 02:51:00 PM EDT [facility] ([facility]) Name Value Range Interpretation Code Description Data Carli rce(s) Supporting Document(s) HCG negative Hcg [facility] ([facility]) ID Date Data Source [id number] 05/24/2020 02:51:00 PM EDT [facility] ([facility]) Name Value Range Interpretation Code Description Data Carli rce(s) Supporting Document(s) HCG negative Hcg [facility] ([facility]) ID Date Data Source [id number] 05/24/2020 02:51:00 PM EDT [facility] ([facility]) Name Value Range Interpretation Code Description Data Carli rce(s) Supporting Document(s) HCG negative Hcg [facility] ([facility]) ID Date Data Source [id number] 05/24/2020 02:51:00 PM EDT [facility] ([facility]) Name Value Range Interpretation Code Description Data Carli rce(s) Supporting Document(s) HCG negative Hcg [facility] ([facility]) Procedure Social History No Information Vital Signs ID Date Data Source UNK Name Value Range Interpretation Code Description Data Source(s) Diastolic blood pressure 71 mm[Hg] 71 mm[Hg] [facility] ([facility]) Body height 63 [in_i] 63 [in_i] [facility] ([facility]) Body mass index (BMI) [Ratio] 24 kg/m2 24 kg/ m2 [facility] ([facility]) Systolic blood pressure 115 mm[Hg] 115 mm[Hg] A [facility] ([facility]) Body weight 2169.6 [oz_av] 2169.6 [oz_av] ATHEN A ([facility]) Diastolic blood pressure 71 mm[Hg] 71 mm[Hg] [facility] ([facility]) Body height 63 [in_i] 63 [in_i] [facility] ([facility]) Body mass index (BMI) [Ratio] 24 kg/m2 24 kg/ m2 [facility] ([facility]) Systolic blood pressure 115 mm[Hg] 115 mm[Hg] A [facility] ([facility]) Body weight 2169.6 [oz_av] 2169.6 [oz_av] ATHEN A ([facility]) Diastolic blood pressure 71 mm[Hg] 71 mm[Hg] [facility] ([facility]) Body height 63 [in_i] 63 [in_i] [facility] ([facility]) Body mass index (BMI) [Ratio] 24 kg/m2 24 kg/ m2 [facility] ([facility]) Systolic blood pressure 115 mm[Hg] 115 mm[Hg] [facility] Body weight 2169.6 [oz_av] 2169.6 [oz_av] ATHEN A ([facility]) Diastolic blood pressure 71 mm[Hg] 71 mm[Hg] [facility] ([facility]) Body height 63 [in_i] 63 [in_i] [facility] ([facility]) Body mass index (BMI) [Ratio] 24 kg/m2 24 kg/ m2 [facility] ([facility]) Systolic blood pressure 115 mm[Hg] 115 mm[Hg] A [facility] ([facility]) Body weight 2169.6 [oz_av] 2169.6 [oz_av] ATHEN A ([facility]) Body height 63 [in_i] 63 [in_i] [facility] ([facility]) Body height 63 [in_i] 63 [in_i] [facility] ([facility]) Body height 63 [in_i] 63 [in_i] [facility] ([facility]) Body height 63 [in_i] 63 [in_i] [facility] ([facility]) Diastolic blood pressure 68 mm[Hg] 68 mm[Hg] [facility] ([facility]) Body height 63 [in_i] 63 [in_i] [facility] ([facility]) Body mass index (BMI) [Ratio] 24.8 kg/m2 24.8 k g/m2 [facility] ([facility]) Systolic blood pressure 106 mm[Hg] 106 mm[Hg] A [facility] ([facility]) Body weight 2243.2 [oz_av] 2243.2 [oz_av] ATHEN A ([facility]) Diastolic blood pressure 68 mm[Hg] 68 mm[Hg] [facility] ([facility]) Body height 63 [in_i] 63 [in_i] [facility] ([facility]) Body mass index (BMI) [Ratio] 24.8 kg/m2 24.8 k g/m2 LACHO ([facility]) Systolic blood pressure 106 mm[Hg] 106 mm[Hg] A CAYDENA ([facility]) Body weight 2243.2 [oz_av] 2243.2 [oz_av] ATHEN A ([facility]) Diastolic blood pressure 68 mm[Hg] 68 mm[Hg] LACHO ([facility]) Body height 63 [in_i] 63 [in_i] LACHO ([facility]) Body mass index (BMI) [Ratio] 24.8 kg/m2 24.8 k g/m2 LACHO ([facility]) Systolic blood pressure 106 mm[Hg] 106 mm[Hg] A THENA ([facility]) Body weight 2243.2 [oz_av] 2243.2 [oz_av] ATHEN A ([facility]) Diastolic blood pressure 68 mm[Hg] 68 mm[Hg] LACHO ([facility]) Body height 63 [in_i] 63 [in_i] LACHO ([facility]) Body mass index (BMI) [Ratio] 24.8 kg/m2 24.8 k g/m2 LACHO ([facility]) Systolic blood pressure 106 mm[Hg] 106 mm[Hg] A CLAU ([facility]) Body weight 2243.2 [oz_av] 2243.2 [oz_av] ATHBARRINGTON A ([facility]) Diastolic blood pressure 68 mm[Hg] 68 mm[Hg] LACHO ([facility]) Body height 63 [in_i] 63 [in_i] LACHO ([facility]) Body mass index (BMI) [Ratio] 24.8 kg/m2 24.8 k g/m2 LACHO ([facility]) Systolic blood pressure 106 mm[Hg] 106 mm[Hg] A CAYDENA ([facility]) Body weight 2243.2 [oz_av] 2243.2 [oz_av] ATHBARRINGTON A ([facility]) Patient Treatment Plan of Care Planned Activity Planned Date Details Description Data Source (s) Cholecalciferol 2000 UNT Oral Capsule LACHO ([facility]) Triamcinolone Acetonide 1 MG/ML Topical Cream LACHO ([facility]) montelukast 10 MG Oral Tablet LACHO ([facility]) fluticasone propionate 50 mcg/actuation nasal spray,suspension SPRAY TWO SPRAYS IN EACH NOSTRIL EVERY NIGHT ATHE NA ([facility]) Cholecalciferol 2000 UNT Oral Capsule LACHO ([facility]) Triamcinolone Acetonide 1 MG/ML Topical Cream LACHO ([facility]) montelukast 10 MG Oral Tablet LACHO ([facility]) fluticasone propionate 50 mcg/actuation nasal spray,suspension SPRAY TWO SPRAYS IN EACH NOSTRIL EVERY NIGHT ATHE NA ([facility]) Cholecalciferol 2000 UNT Oral Capsule LACHO ([facility]) Triamcinolone Acetonide 1 MG/ML Topical Cream LACHO ([facility]) montelukast 10 MG Oral Tablet LACHO ([facility]) fluticasone propionate 50 mcg/actuation nasal spray,suspension SPRAY TWO SPRAYS IN EACH NOSTRIL EVERY NIGHT EITAN ECHEVERRIA ([facility]) Cholecalciferol 2000 UNT Oral Capsule LACHO ([facility]) Triamcinolone Acetonide 1 MG/ML Topical Cream LACHO ([facility]) montelukast 10 MG Oral Tablet LACHO ([facility]) fluticasone propionate 50 mcg/actuation nasal spray,suspension SPRAY TWO SPRAYS IN EACH NOSTRIL EVERY NIGHT ATHCatherine ECHEVERRIA ([facility])
--- OUTSIDE RECORDS SUMMARY | 2021-01-20 21:15 | CCD ---
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 ening Problem 07/01/2018 12:00:00 AM EDT - 05/24/2020 12:00:00 AM EDT [facility] ([facility]) Surgeries/Procedures Procedure Description Date Indications Data Source(s) [id number] SARS-COV-2 COVID-19 AMP PRB 07/10/2020 12:00:00 AM EDT [facility] PROF VALDEZ ALLG IMMNTX X W/PRV ALLGIC XTRCS NJXS 2020 12:00:00 AM EST [facility] ([facility]) PREPJ& ALLERGEN IMMUNOTHERAPY 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 03/12/2020 12:00:00 AM EST [facility] ([facility]) PREPJ& ALLERGEN IMMUNOTHERAPY 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 03/12/2020 12:00:00 AM EST [facility] ([facility] [place]) Results ID Date Data Source [id number] 10/28/2020 01:07:00 PM EDT [facility]) Name Value Range Interpretation Code Description Data Carli rce(s) Supporting Document(s) SARS-CoV-2 (COVID-19) RNA [Presence] in Respiratory specimen by CONCETTA with probe detection not detected not detected Sars Cov 2 RNA [facility]) ID Date Data Source [id number] 10/28/2020 01:07:00 PM EDT [facility]) Name Value Range Interpretation Code Description Data Carli rce(s) Supporting Document(s) SARS-CoV-2 (COVID-19) RNA [Presence] in Respiratory specimen by CONCETTA with probe detection not detected not detected Sars Cov 2 RNA [facility]) ID Date Data Source [id number] 10/08/2020 08:35:00 AM EDT [facility]) Name Value Range Interpretation Code Description Data Carli rce(s) Supporting Document(s) HCG negative Hcg [facility] ([facility]) ID Date Data Source [id number] 10/08/2020 08:35:00 AM EDT [facility] ([facility]) Name Value Range Interpretation Code Description Data Carli rce(s) Supporting Document(s) HCG negative Hcg [facility] ([facility]) ID Date Data Source [id number] 10/03/2020 01:39:00 PM EDT [facility] ([facility]) Name Value Range Interpretation Code Description Data Carli rce(s) Supporting Document(s) HCG negative Hcg [facility] ([facility]) ID Date Data Source [id number] 10/03/2020 01:39:00 PM EDT [facility] ([facility]) Name Value Range Interpretation Code Description Data Carli rce(s) Supporting Document(s) HCG negative Hcg [facility] ([facility]) ID Date Data Source [id number] 10/02/2020 08:39:00 AM EDT [facility] ([facility]) Name Value Range Interpretation Code Description Data Carli rce(s) Supporting Document(s) HCG negative Hcg [facility] ([facility]) ID Date Data Source [id number] 10/02/2020 08:39:00 AM EDT [facility] ([facility]) Name Value Range Interpretation Code Description Data Carli rce(s) Supporting Document(s) HCG negative Hcg [facility] ([facility]) ID Date Data Source [id number] 07/10/2020 11:30:00 AM EDT [facility] Name Value Range Interpretation Code Description Data Carli rce(s) Supporting Document(s) Respiratory specimen severe acute respir atory syndrome coronavirus 2 (SARS-CoV-2) RNA Negative (qualifier value) [facility] This lab was ordered by Caydenhéctor ribeiro and reported by . ID Date Data Source [id number] 07/10/2020 10:32:00 PM EDT [facility] Name Value Range Interpretation Code Description Data Carli rce(s) Supporting Document(s) SARS-CoV-2 RNA INHOUSE Negative Normal (applies to non-n umeric results) [facility] THIS IS A [facility] REPORTABLE COMMUNICABLE DISEASE. Testing was performed using the [employer] COVID-19 MDx Assay. This test has been [...] be found at the following links: Providers: https://www.fda.gov/media/924791/download Patients : https://www.fda.gov/media/064987/download THIS IS A [facility] REPORTABLE COMMUNICABLE DISEASE Negative results do not preclude SARS-CoV-2 infection and should not be used as the sole basis for patient management decisions. Negative results must be combined with clinical observations,patient history, and epidemiological information. ID Date Data Source [id number] 06/05/2020 10:42:00 AM EDT [facility]) Name Value Range Interpretation Code Description Data Carli rce(s) Supporting Document(s) HCG negative Hcg [facility]) ID Date Data Source [id number] 06/05/2020 10:42:00 AM EDT [facility]) Name Value Range Interpretation Code Description Data Carli rce(s) Supporting Document(s) HCG negative Hcg [facility]) ID Date Data Source [id number] 06/05/2020 10:42:00 AM EDT [facility]) Name Value Range Interpretation Code Description Data Carli rce(s) Supporting Document(s) HCG negative Hcg [facility] ([facility]) ID Date Data Source [id number] 06/05/2020 10:42:00 AM EDT [facility] ([facility]) Name Value Range Interpretation Code Description Data Carli rce(s) Supporting Document(s) HCG negative Hcg [facility] ([facility]) ID Date Data Source [id number] 06/05/2020 10:35:00 AM EDT [facility] ([facility]) Name Value Range Interpretation Code Description Data Carli rce(s) Supporting Document(s) total 25(oh) vitamin D 15.3 NG/mL 30.0-100.0 Below low normal T otal 25(Oh) Vitamin D TWENTYNINE PALMS ([facility]) ID Date Data Source [id number] 06/05/2020 10:35[facility] Name Value Range Interpretation Code Description Data Carli rce(s) Supporting Document(s) thyroid stimulating hormone 0.524 uIU/mL 0.358-3.740 Thyroid Stimulating Hormone [facility] ([facility]) ID Date Data Source [id number] 06/05/2020 10:35:00 AM EDT [facility] ([facility]) Name Value Range Interpretation Code Description Data Carli rce(s) Supporting Document(s) triglycerides level 62 mg/dL <150 Triglycerides Le kvng [facility] ([facility]) HDL cholesterol 52 mg/dL >40 HDL Cholesterol ATHE NA ([facility]) Cholesterol in LDL [Mass/volume] in Serum or Plasma 65 mg/dL <1 00 LDL Cholesterol [facility] ([facility]) cholesterol level 129 mg/dL <200 Cholesterol Level [facility] ([facility]) non-HDL-C 77 mg/dL Non-hdl-c [facility] ([facility]) cholesterol risk ratio <5 Cholesterol R isk Ratio [facility] ([facility]) ID Date Data Source [id number] 06/05/2020 10:35:00 AM EDT [facility] ([facility]) Name Value Range Interpretation Code Description Data Carli rce(s) Supporting Document(s) blood urea nitrogen 9 mg/dL 7-18 Blood Urea Nitro gen [facility] ([facility]) creatinine for GFR 0.66 mg/dL 0.55-1.30 Creatinine for GF R [facility] ([facility]) glucose, fasting 92 mg/dL 70-100 Glucose, Fasting AT [facility] ([facility]) potassium serum 4.3 mEq/L 3.5-5.1 Potassium Serum ATHE NA ([facility]) sodium level 139 mEq/L 136-145 Sodium Level [facility] ([facility]) chloride level 106 mEq/L 98-107 Chloride Level [facility] ([facility]) glomerular filtration rate > 60.0 >60 Glomerula r Filtration Rate [facility] ([facility]) AST/SGOT 12 U/L 7-37 AST/SGOT [facility] ([facility]) anion gap 5 mEq/L 8-16 Below low normal Anion Gap [facility] ( [facility]) calcium level 9.4 mg/dL 8.5-10.1 Calcium Level [facility] ( [facility]) carbon dioxide level 28 mEq/L 21-32 Carbon Dioxide Level [facility] ([facility]) total protein 7.0 gm/dL 6.4-8.2 Total Protein [facility] ( [facility]) ALT/SGPT 18 U/L 12-78 ALT/SGPT [facility] ([facility]) albumin 4.0 gm/dL 3.2-5.2 Albumin [facility] ([facility]) alkaline phosphatase 68 U/L 45-117 Alkaline Phosph atase [facility] ([facility]) bilirubin,total 0.5 mg/dL 0.2-1.0 Bilirubin,total ATHE NA ([facility]) albumin/globulin ratio 1.2-2.2 Albumin/globu frank Ratio [facility] ([facility]) ID Date Data Source [id number] 06/05/2020 10:35:00 AM EDT [facility] ([facility]) Name Value Range Interpretation Code Description Data Carli rce(s) Supporting Document(s) white blood count 8.2 10 4.0-10.0 White Blood Count [facility] ([facility]) red blood count 4.10 10 4.00-5.40 Red Blood Count ATHE NA ([facility]) mean corpuscular hemoglobin 33.7 pg 27.0-33.0 Above high no rmal Mean Corpuscular Hemoglobin [facility] ([facility]) hemoglobin 13.8 g/dL 12.0-15.5 Hemoglobin [facility] ([facility]) mean corpuscular volume 99.8 fL 80.0-96.0 Above high normal Mean Corpuscular Volume [facility] ([facility]) hematocrit 40.9 % 36.0-47.0 Hematocrit [facility] ([facility]) red cell distribution width 12.3 % 11.5-14.5 Red Cell Distribution Width [facility] ([facility]) platelet count, automated 274 10 150-450 Platelet C ount, Automated [facility] ([facility]) mean corpuscular HGB conc 33.7 g/dL 32.0-36.5 Mean Corpu scular HGB Conc TWENTYNINE PALMS ([facility]) mono % 6.0 % 2.0-8.0 [place] % [facility] ([facility]) eos % 4.5 % 0.0-3.0 Above high normal Eos % [facility] ([facility]) lymph % 23.2 % 24.0-44.0 Below low normal Lymph % [facility] ( [facility]) neutrophils % 65.4 % 36.0-66.0 Neutrophils % [facility] ( [facility]) immature granulocyte % 0.4 % 0-3.0 Immature Gran ulocyte % [facility] ([facility]) nucleated red blood cell % 0.0 % 0-0 Nucleated Red Blood Cell % [facility] ([facility]) baso % 0.5 % 0.0-1.0 Baso % [facility] ([facility]) eos # 0.4 10 0.0-0.5 Eos # [facility] ([facility]) mono # 0.5 10 0.0-0.8 [place] # [facility] ([facility]) neutrophils # 5.4 10 1.5-8.5 Neutrophils # [facility] ( [facility]) lymph # 1.9 10 1.5-5.0 Lymph # [facility] ([facility]) baso # 0.0 10 0.0-0.2 Baso # [facility] ([facility]) ID Date Data Source [id number] 06/05/2020 10:35:00 AM EDT TWENTYNINE PALMS ([facility]) Name Value Range Interpretation Code Description Data Carli rce(s) Supporting Document(s) total 25(oh) vitamin D 15.3 NG/mL 30.0-100.0 Below low normal T otal 25(Oh) Vitamin D [facility] ([facility]) ID Date Data Source [id number] 06/05/2020 10:35:00 AM EDT TWENTYNINE PALMS ([facility]) Name Value Range Interpretation Code Description Data Carli rce(s) Supporting Document(s) thyroid stimulating hormone 0.524 uIU/mL 0.358-3.740 Thyroid Stimulating Hormone [facility] ([facility]) ID Date Data Source [id number] 06/05/2020 10:35:00 AM EDT [facility] ([facility]) Name Value Range Interpretation Code Description Data Carli rce(s) Supporting Document(s) HDL cholesterol 52 mg/dL >40 HDL Cholesterol ATHE NA ([facility]) cholesterol level 129 mg/dL <200 Cholesterol Level [facility] ([facility]) triglycerides level 62 mg/dL <150 Triglycerides Le kvng [facility] ([facility]) cholesterol risk ratio <5 Cholesterol R isk Ratio [facility] ([facility]) non-HDL-C 77 mg/dL Non-hdl-c [facility] ([facility]) Cholesterol in LDL [Mass/volume] in Serum or Plasma 65 mg/dL <1 00 LDL Cholesterol [facility] ([facility]) ID Date Data Source [id number] 06/05/2020 10:35:00 AM EDT [facility] ([facility]) Name Value Range Interpretation Code Description Data Carli rce(s) Supporting Document(s) glucose, fasting 92 mg/dL 70-100 Glucose, Fasting AT [facility] ([facility]) creatinine for GFR 0.66 mg/dL 0.55-1.30 Creatinine for GF R [facility] ([facility]) sodium level 139 mEq/L 136-145 Sodium Level [facility] ([facility]) glomerular filtration rate > 60.0 >60 Glomerula r Filtration Rate [facility] ([facility]) potassium serum 4.3 mEq/L 3.5-5.1 Potassium Serum ATHE ([facility]) blood urea nitrogen 9 mg/dL 7-18 Blood Urea Nitro gen [facility] ([facility]) carbon dioxide level 28 mEq/L 21-32 Carbon Dioxide Level [facility] ([facility]) calcium level 9.4 mg/dL 8.5-10.1 Calcium Level [facility] ( [facility]) anion gap 5 mEq/L 8-16 Below low normal Anion Gap [facility] ( [facility]) chloride level 106 mEq/L 98-107 Chloride Level [facility] ([facility]) alkaline phosphatase 68 U/L 45-117 Alkaline Phosph atase [facility] ([facility]) total protein 7.0 gm/dL 6.4-8.2 Total Protein [facility] ( [facility]) AST/SGOT 12 U/L 7-37 AST/SGOT [facility] ([facility]) ALT/SGPT 18 U/L 12-78 ALT/SGPT [facility] ([facility]) bilirubin,total 0.5 mg/dL 0.2-1.0 Bilirubin,total ATHE NA ([facility]) albumin/globulin ratio 1.2-2.2 Albumin/globu frank Ratio [facility] ([facility]) albumin 4.0 gm/dL 3.2-5.2 Albumin [facility] ([facility]) ID Date Data Source [id number] 06/05/2020 10:35:00 AM EDT [facility] ([facility]) Name Value Range Interpretation Code Description Data Carli rce(s) Supporting Document(s) red blood count 4.10 10 4.00-5.40 Red Blood Count [facility] ([facility]) white blood count 8.2 10 4.0-10.0 White Blood Count [facility] ([facility]) hematocrit 40.9 % 36.0-47.0 Hematocrit [facility] ([facility]) hemoglobin 13.8 g/dL 12.0-15.5 Hemoglobin [facility] ([facility]) mean corpuscular volume 99.8 fL 80.0-96.0 Above high normal Mean Corpuscular Volume [facility] ([facility]) mean corpuscular hemoglobin 33.7 pg 27.0-33.0 Above high no rmal Mean Corpuscular Hemoglobin [facility] ([facility]) mean corpuscular HGB conc 33.7 g/dL 32.0-36.5 Mean Corpu scular HGB Conc [facility] ([facility]) red cell distribution width 12.3 % 11.5-14.5 Red Cell Distribution Width TWENTYNINE PALMS ([facility]) platelet count, automated 274 10 150-450 Platelet C ount, Automated [facility] ([facility]) mono % 6.0 % 2.0-8.0 [place] % [facility] ([facility]) lymph % 23.2 % 24.0-44.0 Below low normal Lymph % [facility] ( [facility]) eos % 4.5 % 0.0-3.0 Above high normal Eos % [facility] ([facility]) neutrophils % 65.4 % 36.0-66.0 Neutrophils % [facility] ( [facility]) immature granulocyte % 0.4 % 0-3.0 Immature Gran ulocyte % [facility] ([facility]) neutrophils # 5.4 10 1.5-8.5 Neutrophils # TWENTYNINE PALMS ( [facility]) nucleated red blood cell % 0.0 % 0-0 Nucleated Red Blood Cell % [facility] ([facility]) baso % 0.5 % 0.0-1.0 Baso % [facility] ([facility]) eos # 0.4 10 0.0-0.5 Eos # [facility] ([facility]) baso # 0.0 10 0.0-0.2 Baso # [facility] ([facility]) mono # 0.5 10 0.0-0.8 [place] # [facility] ([facility]) lymph # 1.9 10 1.5-5.0 Lymph # [facility] ([facility]) ID Date Data Source [id number] 06/05/2020 10:35:00 AM EDT [facility] ([facility]) Name Value Range Interpretation Code Description Data Carli rce(s) Supporting Document(s) total 25(oh) vitamin D 15.3 NG/mL 30.0-100.0 Below low normal T otal 25(Oh) Vitamin D [facility] ([facility]) ID Date Data Source [id number] 06/05/2020 10:35:00 AM EDT [facility] ([facility]) Name Value Range Interpretation Code Description Data Carli rce(s) Supporting Document(s) thyroid stimulating hormone 0.524 uIU/mL 0.358-3.740 Thyroid Stimulating Hormone [facility] ([facility]) ID Date Data Source [id number] 06/05/2020 10:35:00 AM EDT [facility] ([facility]) Name Value Range Interpretation Code Description Data Carli rce(s) Supporting Document(s) triglycerides level 62 mg/dL <150 Triglycerides Le kvng [facility] ([facility]) cholesterol level 129 mg/dL <200 Cholesterol Level [facility] ([facility]) HDL cholesterol 52 mg/dL >40 HDL Cholesterol ATHE NA ([facility]) Cholesterol in LDL [Mass/volume] in Serum or Plasma 65 mg/dL <1 00 LDL Cholesterol [facility] ([facility]) cholesterol risk ratio <5 Cholesterol R isk Ratio [facility] ([facility]) non-HDL-C 77 mg/dL Non-hdl-c [facility] ([facility]) ID Date Data Source [id number] 06/05/2020 10:35:00 AM EDT [facility] ([facility]) Name Value Range Interpretation Code Description Data Carli rce(s) Supporting Document(s) blood urea nitrogen 9 mg/dL 7-18 Blood Urea Nitro gen [facility] ([facility]) glucose, fasting 92 mg/dL 70-100 Glucose, Fasting AT [facility] ([facility]) creatinine for GFR 0.66 mg/dL 0.55-1.30 Creatinine for GF R [facility] ([facility]) glomerular filtration rate > 60.0 >60 Glomerula r Filtration Rate [facility] ([facility]) potassium serum 4.3 mEq/L 3.5-5.1 Potassium Serum ATHE ([facility]) sodium level 139 mEq/L 136-145 Sodium Level [facility] ([facility]) chloride level 106 mEq/L 98-107 Chloride Level [facility] ([facility]) carbon dioxide level 28 mEq/L 21-32 Carbon Dioxide Level [facility] ([facility]) calcium level 9.4 mg/dL 8.5-10.1 Calcium Level [facility] ( [facility]) anion gap 5 mEq/L 8-16 Below low normal Anion Gap [facility] ( [facility]) AST/SGOT 12 U/L 7-37 AST/SGOT [facility] ([facility]) ALT/SGPT 18 U/L 12-78 ALT/SGPT [facility] ([facility]) alkaline phosphatase 68 U/L 45-117 Alkaline Phosph atase [facility] ([facility]) bilirubin,total 0.5 mg/dL 0.2-1.0 Bilirubin,total ATHE NA ([facility]) albumin 4.0 gm/dL 3.2-5.2 Albumin [facility] ([facility]) total protein 7.0 gm/dL 6.4-8.2 Total Protein [facility] ( [facility]) albumin/globulin ratio 1.2-2.2 Albumin/globu frank Ratio [facility] ([facility]) ID Date Data Source [id number] 06/05/2020 10:35:00 AM EDT [facility] ([facility]) Name Value Range Interpretation Code Description Data Carli rce(s) Supporting Document(s) white blood count 8.2 10 4.0-10.0 White Blood Count [facility] ([facility]) hemoglobin 13.8 g/dL 12.0-15.5 Hemoglobin [facility] ([facility]) red blood count 4.10 10 4.00-5.40 Red Blood Count AT[facility] ([facility]) hematocrit 40.9 % 36.0-47.0 Hematocrit [facility] ([facility]) mean corpuscular volume 99.8 fL 80.0-96.0 Above high normal Mean Corpuscular Volume [facility] [facility]) mean corpuscular hemoglobin 33.7 pg 27.0-33.0 Above high no rmal Mean Corpuscular Hemoglobin [facility] ([facility]) mean corpuscular HGB conc 33.7 g/dL 32.0-36.5 Mean Corpu scular HGB Conc [facility] ([facility]) red cell distribution width 12.3 % 11.5-14.5 Red Cell Distribution Width [facility] ([facility]) platelet count, automated 274 10 150-450 Platelet C ount, Automated [facility] ([facility]) neutrophils % 65.4 % 36.0-66.0 Neutrophils % [facility] ( [facility]) lymph % 23.2 % 24.0-44.0 Below low normal Lymph % [facility] ( [facility]) mono % 6.0 % 2.0-8.0 [place] % [facility] ([facility]) eos % 4.5 % 0.0-3.0 Above high normal Eos % [facility] ([facility]) baso % 0.5 % 0.0-1.0 Baso % [facility] ([facility]) immature granulocyte % 0.4 % 0-3.0 Immature Gran ulocyte % [facility] ([facility]) nucleated red blood cell % 0.0 % 0-0 Nucleated Red Blood Cell % [facility] ([facility]) neutrophils # 5.4 10 1.5-8.5 Neutrophils # [facility] ( [facility]) mono # 0.5 10 0.0-0.8 [place] # [facility] ([facility]) lymph # 1.9 10 1.5-5.0 Lymph # [facility] ([facility]) eos # 0.4 10 0.0-0.5 Eos # [facility] ([facility]) baso # 0.0 10 0.0-0.2 Baso # [facility] ([facility]) ID Date Data Source [id number] 06/05/2020 10:35:00 AM EDT [facility] ([facility]) Name Value Range Interpretation Code Description Data Carli rce(s) Supporting Document(s) total 25(oh) vitamin D 15.3 NG/mL 30.0-100.0 Below low normal T otal 25(Oh) Vitamin D TWENTYNINE PALMS ([facility]) ID Date Data Source [id number] 06/05/2020 10:35:00 AM EDT [facility] ([facility]) Name Value Range Interpretation Code Description Data Carli rce(s) Supporting Document(s) thyroid stimulating hormone 0.524 uIU/mL 0.358-3.740 Thyroid Stimulating Hormone [facility] ([facility]) ID Date Data Source [id number] 06/05/2020 10:35:00 AM EDT TWENTYNINE PALMS ([facility]) Name Value Range Interpretation Code Description Data Carli rce(s) Supporting Document(s) triglycerides level 62 mg/dL <150 Triglycerides Le kvng [facility] ([facility]) non-HDL-C 77 mg/dL Non-hdl-c [facility] ([facility]) HDL cholesterol 52 mg/dL >40 HDL Cholesterol ATHE NA ([facility]) cholesterol level 129 mg/dL <200 Cholesterol Level [facility] ([facility]) Cholesterol in LDL [Mass/volume] in Serum or Plasma 65 mg/dL <1 00 LDL Cholesterol [facility] ([facility]) cholesterol risk ratio <5 Cholesterol R isk Ratio [facility] ([facility]) ID Date Data Source [id number] 06/05/2020 10:35:00 AM EDT [facility] ([facility]) Name Value Range Interpretation Code Description Data Carli rce(s) Supporting Document(s) creatinine for GFR 0.66 mg/dL 0.55-1.30 Creatinine for GF R [facility] ([facility]) sodium level 139 mEq/L 136-145 Sodium Level [facility] ([facility]) blood urea nitrogen 9 mg/dL 7-18 Blood Urea Nitro gen [facility] ([facility]) glucose, fasting 92 mg/dL 70-100 Glucose, Fasting AT [facility] ([facility]) glomerular filtration rate > 60.0 >60 Glomerula r Filtration Rate [facility] ([facility]) potassium serum 4.3 mEq/L 3.5-5.1 Potassium Serum ATHE NA ([facility]) chloride level 106 mEq/L 98-107 Chloride Level [facility] ([facility]) carbon dioxide level 28 mEq/L 21-32 Carbon Dioxide Level [facility] ([facility]) AST/SGOT 12 U/L 7-37 AST/SGOT [facility] ([facility]) ALT/SGPT 18 U/L 12-78 ALT/SGPT [facility] ([facility]) anion gap 5 mEq/L 8-16 Below low normal Anion Gap [facility] ( [facility]) calcium level 9.4 mg/dL 8.5-10.1 Calcium Level [facility] ( [facility]) albumin 4.0 gm/dL 3.2-5.2 Albumin [facility] ([facility]) total protein 7.0 gm/dL 6.4-8.2 Total Protein [facility] ( [facility]) alkaline phosphatase 68 U/L 45-117 Alkaline Phosph atase [facility] ([facility]) bilirubin,total 0.5 mg/dL 0.2-1.0 Bilirubin,total ATHE NA ([facility]) albumin/globulin ratio 1.2-2.2 Albumin/globu frank Ratio [facility] ([facility]) ID Date Data Source [id number] 06/05/2020 10:35:00 AM EDT [facility] ([facility]) Name Value Range Interpretation Code Description Data Carli rce(s) Supporting Document(s) white blood count 8.2 10 4.0-10.0 White Blood Count [facility] ([facility]) red blood count 4.10 10 4.00-5.40 Red Blood Count ATHE ([facility]) hematocrit 40.9 % 36.0-47.0 Hematocrit [facility] ([facility]) mean corpuscular volume 99.8 fL 80.0-96.0 Above high normal Mean Corpuscular Volume [facility] ([facility]) hemoglobin 13.8 g/dL 12.0-15.5 Hemoglobin [facility] ([facility]) mean corpuscular hemoglobin 33.7 pg 27.0-33.0 Above high no rmal Mean Corpuscular Hemoglobin [facility] ([facility]) mean corpuscular HGB conc 33.7 g/dL 32.0-36.5 Mean Corpu scular HGB Conc [facility] ([facility]) platelet count, automated 274 10 150-450 Platelet C ount, Automated [facility] ([facility]) red cell distribution width 12.3 % 11.5-14.5 Red Cell Distribution Width [facility] ([facility]) neutrophils % 65.4 % 36.0-66.0 Neutrophils % [facility] ( [facility]) eos % 4.5 % 0.0-3.0 Above high normal Eos % [facility] ([facility]) mono % 6.0 % 2.0-8.0 [place] % [facility] ([facility]) lymph % 23.2 % 24.0-44.0 Below low normal Lymph % [facility] ( [facility]) neutrophils # 5.4 10 1.5-8.5 Neutrophils # [facility] ( [facility]) immature granulocyte % 0.4 % 0-3.0 Immature Gran ulocyte % [facility] ([facility]) baso % 0.5 % 0.0-1.0 Baso % [facility] ([facility]) nucleated red blood cell % 0.0 % 0-0 Nucleated Red Blood Cell % [facility] ([facility]) mono # 0.5 10 0.0-0.8 [place] # [facility] ([facility]) baso # 0.0 10 0.0-0.2 Baso # [facility] ([facility]) lymph # 1.9 10 1.5-5.0 Lymph # [facility] ([facility]) eos # 0.4 10 0.0-0.5 Eos # [facility] ([facility]) ID Date Data Source [id number] 05/24/2020 02:51:00 PM EDT [facility] ([facility]) Name Value Range Interpretation Code Description Data Carli rce(s) Supporting Document(s) HCG negative Hcg [facility] ([facility]) ID Date Data Source [id number] 05/24/2020 02:51:00 PM EDT [facility] ([facility]) Name Value Range Interpretation Code Description Data Carli rce(s) Supporting Document(s) HCG negative Hcg [facility] ([facility]) ID Date Data Source [id number] 05/24/2020 02:51:00 PM EDT [facility] ([facility]) Name Value Range Interpretation Code Description Data Carli rce(s) Supporting Document(s) HCG negative Hcg [facility] ([facility]) ID Date Data Source [id number] 05/24/2020 02:51:00 PM EDT [facility] ([facility]) Name Value Range Interpretation Code Description Data Carli rce(s) Supporting Document(s) HCG negative Hcg [facility] ([facility]) Procedure Social History No Information Vital Signs ID Date Data Source UNK Name Value Range Interpretation Code Description Data Source(s) Body weight 2169.6 [oz_av] 2169.6 [oz_av] ATHEN A ([facility]) Diastolic blood pressure 71 mm[Hg] 71 mm[Hg] [facility] ([facility]) Body height 63 [in_i] 63 [in_i] [facility] ([facility]) Body mass index (BMI) [Ratio] 24 kg/m2 24 kg/ m2 [facility] ([facility]) Systolic blood pressure 115 mm[Hg] 115 mm[Hg] A [facility] ([facility]) Diastolic blood pressure 71 mm[Hg] 71 mm[Hg] [facility] ([facility]) Body height 63 [in_i] 63 [in_i] [facility] ([facility]) Body mass index (BMI) [Ratio] 24 kg/m2 24 kg/ m2 [facility] ([facility]) Systolic blood pressure 115 mm[Hg] 115 mm[Hg] [facility] Body weight 2169.6 [oz_av] 2169.6 [oz_av] ATHEN A ([facility]) Diastolic blood pressure 71 mm[Hg] 71 mm[Hg] [facility] ([facility]) Body height 63 [in_i] 63 [in_i] [facility] ([facility]) Body mass index (BMI) [Ratio] 24 kg/m2 24 kg/ m2 [facility] ([facility]) Systolic blood pressure 115 mm[Hg] 115 mm[Hg] A [place] ([facility]) Body weight 2169.6 [oz_av] 2169.6 [oz_av] ATHEN A ([facility]) Diastolic blood pressure 71 mm[Hg] 71 mm[Hg] [facility] ([facility]) Body height 63 [in_i] 63 [in_i] [facility] ([facility]) Body mass index (BMI) [Ratio] 24 kg/m2 24 kg/ m2 [facility] ([facility]) Systolic blood pressure 115 mm[Hg] 115 mm[Hg] [facility] Body weight 2169.6 [oz_av] 2169.6 [oz_av] ATHEN A ([facility]) Body height 63 [in_i] 63 [in_i] [facility] ([facility]) Body height 63 [in_i] 63 [in_i] [facility] ([facility]) Body height 63 [in_i] 63 [in_i] [facility] ([facility]) Body height 63 [in_i] 63 [in_i] [facility] ([facility]) Diastolic blood pressure 68 mm[Hg] 68 mm[Hg] [facility] ([facility]) Body height 63 [in_i] 63 [in_i] [facility] ([facility]) Body mass index (BMI) [Ratio] 24.8 kg/m2 24.8 k g/m2 [facility] ([facility]) Systolic blood pressure 106 mm[Hg] 106 mm[Hg] A [place] ([facility]) Body weight 2243.2 [oz_av] 2243.2 [oz_av] ATHEN A ([facility]) Diastolic blood pressure 68 mm[Hg] 68 mm[Hg] [facility] ([facility]) Body height 63 [in_i] 63 [in_i] [facility] ([facility]) Body mass index (BMI) [Ratio] 24.8 kg/m2 24.8 k g/m2 [facility] ([facility]) Systolic blood pressure 106 mm[Hg] 106 mm[Hg] A [place] ([facility]) Body weight 2243.2 [oz_av] 2243.2 [oz_av] ATHEN A ([facility]) Diastolic blood pressure 68 mm[Hg] 68 mm[Hg] [facility] ([facility]) Body height 63 [in_i] 63 [in_i] [facility] ([facility]) Body mass index (BMI) [Ratio] 24.8 kg/m2 24.8 k g/m2 [facility] ([facility]) Systolic blood pressure 106 mm[Hg] 106 mm[Hg] A [place] ([facility]) Body weight 2243.2 [oz_av] 2243.2 [oz_av] ATHEN A ([facility]) Diastolic blood pressure 68 mm[Hg] 68 mm[Hg] [facility] ([facility]) Body height 63 [in_i] 63 [in_i] [facility] ([facility]) Body mass index (BMI) [Ratio] 24.8 kg/m2 24.8 k g/m2 [facility] ([facility]) Systolic blood pressure 106 mm[Hg] 106 mm[Hg] A [place] ([facility]) Body weight 2243.2 [oz_av] 2243.2 [oz_av] ATHEN A ([facility]) Systolic blood pressure 106 mm[Hg] 106 mm[Hg] A [facility] ([facility]) Body weight 2243.2 [oz_av] 2243.2 [oz_av] ATHEN A ([facility]) Diastolic blood pressure 68 mm[Hg] 68 mm[Hg] [facility] ([facility]) Body height 63 [in_i] 63 [in_i] [facility] ([facility]) Body mass index (BMI) [Ratio] 24.8 kg/m2 24.8 k g/m2 [facility] ([facility]) Patient Treatment Plan of Care Planned Activity Planned Date Details Description Data Source (s) Cholecalciferol 2000 UNT Oral Capsule [facility] ([facility]) Triamcinolone Acetonide 1 MG/ML Topical Cream [facility] ([facility]) montelukast 10 MG Oral Tablet [facility] ([facility]) fluticasone propionate 50 mcg/actuation nasal spray,suspension SPRAY TWO SPRAYS IN EACH NOSTRIL EVERY NIGHT ATHE NA ([facility]) Cholecalciferol 2000 UNT Oral Capsule [facility] ([facility]) Triamcinolone Acetonide 1 MG/ML Topical Cream [facility] ([facility]) montelukast 10 MG Oral Tablet [facility] ([facility]) fluticasone propionate 50 mcg/actuation nasal spray,suspension SPRAY TWO SPRAYS IN EACH NOSTRIL EVERY NIGHT ATHE NA ([facility]) Cholecalciferol 2000 UNT Oral Capsule [facility] ([facility]) Triamcinolone Acetonide 1 MG/ML Topical Cream [facility] ([facility]) montelukast 10 MG Oral Tablet [facility] ([facility]) fluticasone propionate 50 mcg/actuation nasal spray,suspension SPRAY TWO SPRAYS IN EACH NOSTRIL EVERY NIGHT EITAN ECHEVERRIA ([facility]) Cholecalciferol 2000 UNT Oral Capsule [facility] ([facility]) Triamcinolone Acetonide 1 MG/ML Topical Cream [facility] ([facility]) montelukast 10 MG Oral Tablet [facility] ([facility]) fluticasone propionate 50 mcg/actuation nasal spray,suspension SPRAY TWO SPRAYS IN EACH NOSTRIL EVERY NIGHT ATHCatherine ECHEVERRIA ([facility])
== END 2021-01-20 21:06 | disposition left against medical advice (07) ==
LOC: M ED 20:21
DX: Z53.21 Procedure and treatment not carried out due to patient leaving prior to being seen by health care provider (principal)

== ENCOUNTER → 2021-05-06 | Outpatient (CLI) | payer MEDICAID | LOC: M OUTALCOH 08:06 | PROVIDERS: ATTEND Psychiatry & Neurology Psychiatry | DX: Z13.39 Encounter for screening examination for other mental health and behavioral disorders (principal) ==

== ENCOUNTER → 2021-12-10 | Outpatient (REF) | payer OTHER | LOC: M SFHCWAGY 17:17 | PROVIDERS: ATTEND Specialist | DX: Z12.4 Encounter for screening for malignant neoplasm of cervix (principal) ==

== ENCOUNTER → 2022-02-11 | Outpatient (REF) | payer OTHER | LOC: M LAB REF 16:32 | PROVIDERS: ATTEND Pediatrics | DX: R30.0 Dysuria (principal) ==

== ENCOUNTER → 2022-02-25 | Outpatient (REF) | payer OTHER ==
[2022-02-25 18:47] LABS: BASO # 0.1 10^3/uL (0.0-0.2); BASO % 0.7 % (0.0-1.0); EOS # 0.3 10^3/uL (0.0-0.5); EOS % 4.2 % (0.0-3.0); HEMATOCRIT 40.6 % (36.0-47.0); HEMOGLOBIN 13.1 g/dl (12.0-15.5); LYMPH # 2.3 10^3/uL (1.5-5.0); LYMPH % 29.9 % (24.0-44.0); MEAN CORPUSCULAR HEMOGLOBIN 31.8 pg (27.0-33.0); MEAN CORPUSCULAR HGB CONC 32.3 g/dl (32.0-36.5); MEAN CORPUSCULAR VOLUME 98.5 fl (80.0-96.0); MONO # 0.5 10^3/uL (0.0-0.8); MONO % 6.1 % (2.0-8.0); NEUTROPHILS # 4.5 10^3/uL (1.5-8.5); NEUTROPHILS % 58.7 % (36.0-66.0); PLATELET COUNT, AUTOMATED 298 10^3/uL (150-450); RED BLOOD COUNT 4.12 10^6/uL (4.00-5.40); WHITE BLOOD COUNT 7.6 10^3/uL (4.0-10.0)
[2022-02-25 19:17] LABS: ALKALINE PHOSPHATASE 62 U/L (46-116); ALT/SGPT 20 U/L (7.0-40); AST/SGOT 17 U/L (<34); BILIRUBIN,TOTAL 0.8 MG/DL (0.3-1.2); BLOOD UREA NITROGEN 10 MG/DL (9-23); CALCIUM LEVEL 9.2 MG/DL (8.5-10.1); CARBON DIOXIDE LEVEL 25 MMOL/L (20-31); CHLORIDE LEVEL 107 MMOL/L (98-107); CREATININE FOR GFR 0.81 MG/DL (0.55-1.30); GLOMERULAR FILTRATION RATE > 60.0 (>60); GLUCOSE, FASTING 86 MG/DL (60-100); POTASSIUM SERUM 3.9 MMOL/L (3.5-5.1); SODIUM LEVEL 141 MMOL/L (136-145); TOTAL PROTEIN 6.8 G/DL (5.7-8.2)
== END ==
LOC: M LAB REF 16:32
PROVIDERS: ATTEND Family Medicine Addiction Medicine
DX: R58 Hemorrhage, not elsewhere classified (principal); R10.9 Unspecified abdominal pain

== ENCOUNTER → 2022-07-14 | Outpatient (REF) | payer OTHER ==
[~2022-07-14] MED LIST changes: -ALBU20IN INH; +ALBU5SOL7 INH
[2022-07-14 13:03] LABS: APPEARANCE, URINE HAZY (CLEAR); BACTERIA, URINE AUTO 1+ (NEGATIVE); BILIRUBIN, URINE AUTO NEGATIVE (NEGATIVE); BLOOD, URINE BLOOD 1+ (NEGATIVE); COLOR, URINE YELLOW (YELLOW); GLUCOSE, URINE (UA) AUTO NEGATIVE (NEGATIVE); KETONE, URINE AUTO NEGATIVE (NEGATIVE); LEUKOCYTE ESTERASE, URINE AUTO 3+ (NEGATIVE); MUCUS, URINE SMALL (NEGATIVE); NITRITE, URINE AUTO NEGATIVE (NEGATIVE); PROTEIN, URINE AUTO NEGATIVE (NEGATIVE); RBC, URINE AUTO 3 /HPF (0-3); SPECIFIC GRAVITY URINE AUTO 1.014 (1.002-1.035); SQUAMOUS EPITHELIAL CELL UR AU 11 /HPF (0-6); UROBILINOGEN, URINE AUTO 0.2 mg/dL (0.0-2.0); WBC, URINE AUTO 1 /HPF (0-3)
== END ==
LOC: M LAB REF 12:00
PROVIDERS: ATTEND Physician Assistant Medical
DX: N39.0 Urinary tract infection, site not specified (principal)

== ENCOUNTER → 2022-11-17 | Outpatient (CLI) | payer OTHER ==
[2022-11-17 19:23] LABS: APPEARANCE, URINE HAZY (CLEAR); BACTERIA, URINE AUTO NEGATIVE (NEGATIVE); BILIRUBIN, URINE AUTO NEGATIVE (NEGATIVE); BLOOD, URINE BLOOD 2+ (NEGATIVE); COLOR, URINE YELLOW (YELLOW); GLUCOSE, URINE (UA) AUTO NEGATIVE (NEGATIVE); KETONE, URINE AUTO NEGATIVE (NEGATIVE); LEUKOCYTE ESTERASE, URINE AUTO 2+ (NEGATIVE); MUCUS, URINE SMALL (NEGATIVE); NITRITE, URINE AUTO NEGATIVE (NEGATIVE); PROTEIN, URINE AUTO 2+ mg/dL (NEGATIVE); RBC, URINE AUTO 23 /HPF (0-3); SPECIFIC GRAVITY URINE AUTO 1.021 (1.002-1.035); SQUAMOUS EPITHELIAL CELL UR AU 5 /HPF (0-6); UROBILINOGEN, URINE AUTO 0.2 mg/dL (0.0-2.0); WBC, URINE AUTO 109 /HPF (0-3)
[2022-11-17 19:34] LABS: HEMOGLOBIN 15.1 g/dl (12.0-15.5); MEAN CORPUSCULAR HGB CONC 32.8 g/dl (32.0-36.5); MEAN CORPUSCULAR VOLUME 100.4 fl (80.0-96.0); PLATELET COUNT, AUTOMATED 314 10^3/uL (150-450); RED BLOOD COUNT 4.58 10^6/uL (4.00-5.40)
[2022-11-17 20:02] LABS: THYROID STIMULATING HORMONE 1.557 uIU/ML (0.55-4.78)
[2022-11-17 20:06] LABS: FREE T4 0.96 NG/DL (0.89-1.76)
[2022-11-17 20:08] LABS: BLOOD UREA NITROGEN 13 MG/DL (9-23); CALCIUM LEVEL 9.3 MG/DL (8.5-10.1); CARBON DIOXIDE LEVEL 27 MMOL/L (20-31); CHLORIDE LEVEL 105 MMOL/L (98-107); GLOMERULAR FILTRATION RATE > 60.0 (>60); GLUCOSE, FASTING 66 MG/DL (60-100); POTASSIUM SERUM 4.5 MMOL/L (3.5-5.1); SODIUM LEVEL 142 MMOL/L (136-145)
[2022-11-17 20:25] LABS: HIV 1&2 SCREEN NEGATIVE (NEGATIVE)
[2022-11-17 20:32] LABS: HEPATITIS C VIRUS ABY INDEX 0.14 INDEX (<0.8)
[2022-11-17 22:47] LABS: GC DNA AMPLIFICATION NEGATIVE (NEGATIVE)
== END ==
LOC: M PLALAB 15:35
PROVIDERS: ATTEND Family Medicine
DX: R30.0 Dysuria (principal); Z11.9 Encounter for screening for infectious and parasitic diseases, unspecified; R68.89 Other general symptoms and signs; R23.3 Spontaneous ecchymoses

== ENCOUNTER → 2023-05-20 | Outpatient (CLI) | payer OTHER ==
[2023-05-20 14:34] LABS: BASO # 0.1 10^3/uL (0.0-0.2); BASO % 0.7 % (0.0-1.0); EOS # 0.6 10^3/uL (0.0-0.5); LYMPH # 1.8 10^3/uL (1.5-5.0); MEAN CORPUSCULAR HEMOGLOBIN 32.9 pg (27.0-33.0); MEAN CORPUSCULAR HGB CONC 33.3 g/dl (32.0-36.5); MEAN CORPUSCULAR VOLUME 98.7 fl (80.0-96.0); MONO # 0.5 10^3/uL (0.0-0.8); MONO % 5.9 % (2.0-8.0); NEUTROPHILS # 5.5 10^3/uL (1.5-8.5); PLATELET COUNT, AUTOMATED 315 10^3/uL (150-450); RED BLOOD COUNT 4.56 10^6/uL (4.00-5.40); WHITE BLOOD COUNT 8.4 10^3/uL (4.0-10.0)
[2023-05-20 14:45] LABS: ERYTHROCYTE SEDIMENTATION RATE 8 mm/hr (0-20)
[2023-05-20 15:05] LABS: C REACTIVE PROTEIN QUANTITATIV < 0.40 MG/DL (<1.0)
[2023-05-20 15:06] LABS: BLOOD UREA NITROGEN 10 MG/DL (9-23); CALCIUM LEVEL 9.5 MG/DL (8.5-10.1); CARBON DIOXIDE LEVEL 30 MMOL/L (20-31); CHLORIDE LEVEL 105 MMOL/L (98-107); CREATININE FOR GFR 0.81 MG/DL (0.55-1.30); GLOMERULAR FILTRATION RATE > 60.0 (>60); GLUCOSE, FASTING 96 MG/DL (60-100); POTASSIUM SERUM 4.4 MMOL/L (3.5-5.1); SODIUM LEVEL 138 MMOL/L (136-145)
[2023-05-20 15:09] LABS: THYROID STIMULATING HORMONE 2.069 uIU/ML (0.55-4.78)
== END ==
LOC: M PLALAB 10:16
PROVIDERS: ATTEND Family Medicine
DX: R63.4 Abnormal weight loss (principal)

== ENCOUNTER → 2023-07-13 | Outpatient (REF) | payer OTHER | LOC: M SFHCPLAZ 10:18 | PROVIDERS: ATTEND Family Medicine | DX: L30.9 Dermatitis, unspecified (principal) ==

== ENCOUNTER → 2023-07-21 | Outpatient (CLI) | payer OTHER ==
[2023-07-21 15:23] LABS: BASO % 0.4 % (0.0-1.0); EOS # 0.1 10^3/uL (0.0-0.5); EOS % 2.3 % (0.0-3.0); HEMATOCRIT 36.7 % (36.0-47.0); HEMOGLOBIN 12.3 g/dl (12.0-15.5); LYMPH # 1.3 10^3/uL (1.5-5.0); MEAN CORPUSCULAR HEMOGLOBIN 33.8 pg (27.0-33.0); MEAN CORPUSCULAR HGB CONC 33.5 g/dl (32.0-36.5); MEAN CORPUSCULAR VOLUME 100.8 fl (80.0-96.0); MONO # 0.3 10^3/uL (0.0-0.8); NEUTROPHILS # 3.5 10^3/uL (1.5-8.5); NEUTROPHILS % 66.7 % (36.0-66.0); PLATELET COUNT, AUTOMATED 254 10^3/uL (150-450); RED BLOOD COUNT 3.64 10^6/uL (4.00-5.40); WHITE BLOOD COUNT 5.3 10^3/uL (4.0-10.0)
[2023-07-21 15:26] LABS: COMPLEMENT C3 116.9 MG/DL (82.0-160.0); COMPLEMENT C4 15.9 MG/DL (12-36)
[2023-07-21 15:40] LABS: HEPATITIS B SURFACE ANTIGEN NEGATIVE (NEGATIVE)
[2023-07-22 14:59] LABS: CRYOGLOBULINS NEGATIVE (NEGATIVE)
[2023-07-27 17:07] LABS: COMPLEMENT TOTAL (CH50) > 60 U/mL (>41); HEPATITIS B CORE ANTIBODY IGG Negative (Negative)
== END ==
LOC: M PLALAB 12:57
PROVIDERS: ATTEND Family Medicine
DX: R21 Rash and other nonspecific skin eruption (principal); D72.10 Eosinophilia, unspecified

== ENCOUNTER → 2023-11-12 | Outpatient (REF) | payer OTHER ==
[2023-11-12 13:52] LABS: APPEARANCE, URINE HAZY (CLEAR); BACTERIA, URINE AUTO NEGATIVE (NEGATIVE); BILIRUBIN, URINE AUTO NEGATIVE (NEGATIVE); BLOOD, URINE BLOOD 2+ (NEGATIVE); COLOR, URINE YELLOW (YELLOW); GLUCOSE, URINE (UA) AUTO NEGATIVE (NEGATIVE); KETONE, URINE AUTO NEGATIVE (NEGATIVE); LEUKOCYTE ESTERASE, URINE AUTO 2+ (NEGATIVE); MUCUS, URINE SMALL (NEGATIVE); NITRITE, URINE AUTO NEGATIVE (NEGATIVE); PROTEIN, URINE AUTO NEGATIVE (NEGATIVE); RBC, URINE AUTO 6 /HPF (0-3); SPECIFIC GRAVITY URINE AUTO 1.019 (1.002-1.035); SQUAMOUS EPITHELIAL CELL UR AU 9 /HPF (0-6); UROBILINOGEN, URINE AUTO 0.2 mg/dL (0.0-2.0); WBC, URINE AUTO 38 /HPF (0-3)
== END ==
LOC: M SFHCPLAZ 12:44
PROVIDERS: ATTEND Nurse Practitioner Family
DX: R39.9 Unspecified symptoms and signs involving the genitourinary system (principal)